=== PATIENT | female | born 1935 | race Caucasian/White ===

== ENCOUNTER → 2020-02-12 15:19 | Outpatient (BNVA) | payer MEDICARE, SELFPAY | PROVIDERS: PCP Family Medicine; Referring Provider Family Medicine; Visit Provider Surgery | DX: D05.01 Lobular carcinoma in situ of right breast (principal) | CPT/HCPCS: 99212 ==

== ENCOUNTER 2020-05-04 09:22 | Outpatient (REF) | payer MEDICARE, SELFPAY ==
[2020-05-04 11:03] LABS: Alanine Aminotransferase 17 U/L (0-31); Anion Gap 11 (12-20); Blood Urea Nitrogen 27 mg/dL (9-16); Carbon Dioxide 30 mmol/L (22-29); Chloride 105 mmol/L (96-108); Estimated Glomerular Filt Rate > 60; Sodium 142 mmol/L (135-145)
== END 2020-05-04 09:23 | disposition home or self-care (01) ==
LOC: HO.LAB 09:22
PROVIDERS: PCP Family Medicine; Visit Provider Family Medicine
DX: I10 Essential (primary) hypertension (principal); E78.00 Pure hypercholesterolemia, unspecified; E03.9 Hypothyroidism, unspecified; Z79.899 Other long term (current) drug therapy
CPT/HCPCS: 36415; 80051; 82550; 82565; 84439; 84460; 84520

== ENCOUNTER → 2020-08-20 10:48 | Outpatient (BNVA) | payer MEDICARE, SELFPAY | PROVIDERS: PCP Family Medicine; Visit Provider Surgery | DX: D05.01 Lobular carcinoma in situ of right breast (principal) | CPT/HCPCS: 99212 ==

== ENCOUNTER 2020-12-25 10:01 | Outpatient (REF) | payer MEDICARE, SELFPAY ==
--- NOTE | ~2020-12-25 | MM_ITS ---
EXAMINATION: MM SCREENING DIGITAL BREAST TOMOSYNTHESIS, BILATERAL CLINICAL INFORMATION: Screening. Asymptomatic. The lifetime risk of breast cancer based on the Tyrer-Cuzick Model is 4%. COMPARISON: Mammography: 10/31/2019, 10/23/2019, 10/17/2018 TECHNIQUE: Digital breast tomosynthesis is performed in both the craniocaudal and mediolateral oblique views along with computer-aided detection (CAD). Synthesized 2D images are generated from the tomosynthesis. FINDINGS: The breasts are heterogeneously dense, which may obscure small masses (ACR BI-RADS breast composition Category c). There are no significant masses, abnormal calcifications, or other abnormalities. Parenchymal pattern is similar to prior exams. No developing density. There are scattered benign coarse and vascular calcifications. Biopsy clip marker again seen anterior upper outer left breast. MM/MM tomosynthesis screening BI IMPRESSION: No mammographic evidence of malignancy. ASSESSMENT: BI-RADS 2: Benign RECOMMENDATION: Routine annual mammography screening. This patient's information was entered into a reminder system with a target due date for their next mammogram.
== END 2020-12-25 10:02 | disposition home or self-care (01) ==
LOC: HO.MAMMO 10:01
PROVIDERS: PCP Family Medicine; Visit Provider Surgery
DX: Z12.31 Encounter for screening mammogram for malignant neoplasm of breast (principal)
CPT/HCPCS: 77063; 77067

== ENCOUNTER 2021-01-27 10:57 | Outpatient (REF) | payer MEDICARE, SELFPAY ==
[2021-01-27 12:13] LABS: Anion Gap 11 (12-20); Blood Urea Nitrogen 31 mg/dL (9-16); Carbon Dioxide 29 mmol/L (22-29); Chloride 105 mmol/L (96-108); Estimated Glomerular Filt Rate 53; Potassium 3.8 mmol/L (3.3-5.1); Sodium 141 mmol/L (135-145)
== END 2021-01-27 10:58 | disposition home or self-care (01) ==
LOC: HO.LAB 10:57
PROVIDERS: PCP Family Medicine; Visit Provider Family Medicine
DX: I10 Essential (primary) hypertension (principal)
CPT/HCPCS: 36415; 80051; 82565; 84520

== ENCOUNTER → 2021-02-05 11:40 | Outpatient (BNVA) | payer MEDICARE, SELFPAY | PROVIDERS: PCP Family Medicine; Visit Provider Surgery | DX: D05.01 Lobular carcinoma in situ of right breast (principal) | CPT/HCPCS: 99212 ==

== ENCOUNTER 2021-08-04 10:24 | Outpatient (REF) | payer MEDICARE, SELFPAY ==
[2021-08-04 12:11] LABS: Anion Gap 11 (12-20); Blood Urea Nitrogen 29 mg/dL (9-16); Carbon Dioxide 28 mmol/L (22-29); Chloride 106 mmol/L (96-108); Estimated Glomerular Filt Rate 53; Sodium 141 mmol/L (135-145)
== END 2021-08-04 10:25 | disposition home or self-care (01) ==
LOC: HO.LAB 10:24
PROVIDERS: PCP Family Medicine; Visit Provider Family Medicine
DX: I10 Essential (primary) hypertension (principal)
CPT/HCPCS: 36415; 80051; 82565; 84520

== ENCOUNTER → 2021-08-13 10:40 | Outpatient (BNVA) | payer MEDICARE, SELFPAY | PROVIDERS: PCP Family Medicine; Visit Provider Surgery | DX: D05.01 Lobular carcinoma in situ of right breast (principal) | CPT/HCPCS: 99212 ==

== ENCOUNTER 2021-10-18 13:41 | Outpatient (REF) | payer MEDICARE, SELFPAY ==
--- NOTE | ~2021-10-18 | XR_ITS ---
EXAMINATION: XR LUMBOSACRAL SPINE CLINICAL INFORMATION: Sciatica COMPARISON: Radiographs lumbar spine 04/15/2015 TECHNIQUE: Lumbar spine is imaged in 3 views. FINDINGS: There is normal lumbar segmentation with 5 nonrib-bearing lumbar vertebrae with right dextrocurvature and mild accentuation lumbar lordosis again seen. There is no interval lumbar vertebral compression or destructive process. There is variable multilevel degenerative disc changes lower thoracic and lumbar spine with variable mild disc narrowing and vertebral spurring. There is no erosive change. Facet degeneration is seen greatest L4-S1. No spondylolisthesis or retrolisthesis. Degenerative changes are increased since prior imaging 2016. The SI joints and visualized sacrum are unremarkable. XR/XR lumbar spine 2-3V IMPRESSION: -Multilevel degenerative disc and degenerative facet changes increased since prior imaging 2016. -Dextrocurvature and accentuated lumbar lordosis again noted. -No vertebral compression, spondylolisthesis, or destructive process.
--- NOTE | ~2021-10-18 | XR_ITS ---
EXAMINATION: XR CHEST CLINICAL INFORMATION: Hoarseness COMPARISON: Chest radiographs 10/24/2013, 04/30/2013 TECHNIQUE: 2 views of the chest were obtained. FINDINGS: There is mild hyperinflation similar to prior studies. The cardiopericardial silhouette is borderline enlarged and stable. The vascularity is normal. There is no airspace consolidation or effusion. The hilar and mediastinal contours are normal. No acute bony abnormality. XR/XR chest 2V IMPRESSION: Lungs clear. No acute intrathoracic disease.
--- NOTE | ~2021-10-18 | XR_ITS ---
EXAMINATION: XR HIP, RIGHT CLINICAL INFORMATION: Pain right hip COMPARISON: None TECHNIQUE: Two views of the right hip. FINDINGS: No fracture, dislocation, destructive process. There is mild narrowing superior medial hip joints. No subchondral sclerosis or erosive change or chondrocalcinosis. Visualized pelvis unremarkable. Bowel gas unremarkable. 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 XR/XR hip RT min 2V IMPRESSION: Borderline narrowing superior medial right hip. No erosion or chondrocalcinosis.
== END 2021-10-18 13:42 | disposition home or self-care (01) ==
LOC: HO.XRAY 13:41
PROVIDERS: PCP Family Medicine; Visit Provider Family Medicine
DX: M25.551 Pain in right hip (principal); M54.31 Sciatica, right side
CPT/HCPCS: 71046; 72100; 73502

== ENCOUNTER 2021-12-31 11:43 | Outpatient (REF) | payer MEDICARE, SELFPAY ==
--- NOTE | ~2021-12-31 | MM_ITS ---
EXAMINATION: MM SCREENING DIGITAL BREAST TOMOSYNTHESIS, BILATERAL CLINICAL INFORMATION: Screening. Asymptomatic. History excisional right biopsy 2014 (sclerotic fibroadenoma, intraductal papilloma, multifocal LCIS). COMPARISON: Mammography: 12/25/2020, 10/31/2019, 10/23/2019, 10/17/2018 TECHNIQUE: Digital breast tomosynthesis is performed in both the craniocaudal and mediolateral oblique views along with computer-aided detection (CAD). Synthesized 2D images are generated from the tomosynthesis. FINDINGS: The breasts are heterogeneously dense, which may obscure small masses (ACR BI-RADS breast composition Category c). Parenchymal pattern is similar to prior studies. There is no significant mass, developing density, or architectural abnormality. Scattered benign round and coarse calcifications are present. No abnormal calcifications. Biopsy clip marker again noted anterior upper outer left breast. The axilla and skin contours are unremarkable. There are no significant changes. MM/MM tomosynthesis screening BI IMPRESSION: No mammographic evidence of malignancy. ASSESSMENT: BI-RADS 2: Benign RECOMMENDATION: Routine annual mammography screening. This patient's information was entered into a reminder system with a target due date for their next mammogram.
== END 2021-12-31 11:44 | disposition home or self-care (01) ==
LOC: HO.MAMMO 11:43
PROVIDERS: PCP Family Medicine; Visit Provider Family Medicine
DX: Z12.31 Encounter for screening mammogram for malignant neoplasm of breast (principal)
CPT/HCPCS: 77063; 77067

== ENCOUNTER 2022-01-20 12:28 | Outpatient (REF) | payer MEDICARE, SELFPAY ==
[2022-01-20 14:01] LABS: Alanine Aminotransferase 22 U/L (0-31); Anion Gap 12 (12-20); Aspartate Amino Transferase 49 U/L (5-31); Blood Urea Nitrogen 22 mg/dL (9-16); Carbon Dioxide 28 mmol/L (22-29); Chloride 105 mmol/L (96-108); Estimated Glomerular Filt Rate 48; Potassium 4.3 mmol/L (3.3-5.1); Sodium 141 mmol/L (135-145)
[2022-01-20 15:01] LABS: Free T4 (Free Thyroxine) 1.47 ng/dL (0.71-1.85); Thyroid Stimulating Hormone 1.47 uIU/mL (0.32-4.0)
== END 2022-01-20 12:29 | disposition home or self-care (01) ==
LOC: HO.LAB 12:28
PROVIDERS: PCP Family Medicine; Visit Provider Family Medicine
DX: I10 Essential (primary) hypertension (principal); E03.9 Hypothyroidism, unspecified; E78.00 Pure hypercholesterolemia, unspecified; Z79.899 Other long term (current) drug therapy
CPT/HCPCS: 36415; 80051; 82550; 82565; 84439; 84443; 84450; 84460; 84520

== ENCOUNTER 2022-07-15 12:26 | Outpatient (REF) | payer MEDICARE, SELFPAY ==
[2022-07-15 12:42] LABS: MANUAL DIFF FLAG NO
[2022-07-15 13:18] LABS: Basophils Absolute Auto 0.1 X10*3/uL (0.0-0.2); Basophils Percent Auto 1.2 % (0-2); Eosinophils Absolute Auto 0.2 X10*3/uL (0.0-0.4); Eosinophils Percent Auto 2.7 % (0-4); Hematocrit 34.8 % (37.0-47.0); Hemoglobin 11.3 g/dl (12.0-16.0); Imm Gran Abs Auto 0.02 X10*3/uL (0.00-0.03); Imm Gran Pct Auto 0.3 % (0.0-0.4); Lymphocytes Absolute Auto 1.8 X10*3/uL (1.2-4.9); Lymphocytes Percent Auto 29.1 % (20-40); Mean Corpuscular HGB Conc 32.5 g/dl (31.0-35.0); Mean Corpuscular Hemoglobin 29.2 pg (27.0-33.0); Mean Corpuscular Volume 89.9 fL (80.0-98.0); Mean Platelet Volume 10.8 fL (9.4-12.3); Monocytes Absolute Auto 0.8 X10*3/uL (0.1-1.2); Monocytes Percent Auto 13.5 % (2-11); Neutrophils Absolute Auto 3.2 x10*3/uL (2.0-8.3); Neutrophils Percent Auto 53.2 % (45-73); Platelet Count 263 X10*3/uL (160-400); Red Blood Count 3.87 X10*6/uL (4.20-5.50); Red Cell Distribution Width 13.7 % (11.0-16.0)
[2022-07-15 14:19] LABS: Alanine Aminotransferase 23 U/L (0-31); Albumin Level 3.7 g/dL (3.5-5.0); Alkaline Phosphatase 44 U/L (39-117); Anion Gap 13 (12-20); Aspartate Amino Transferase 53 U/L (5-31); Blood Urea Nitrogen 24 mg/dL (9-16); Calcium 9.4 mg/dL (8.4-10.2); Carbon Dioxide 25 mmol/L (22-29); Chloride 106 mmol/L (96-108); Estimated Glomerular Filt Rate 57; Free T4 (Free Thyroxine) 1.49 ng/dL (0.71-1.85); Glucose Random 87 mg/dL (60-115); Potassium 4.2 mmol/L (3.3-5.1); Sodium 140 mmol/L (135-145)
== END 2022-07-15 12:27 | disposition home or self-care (01) ==
LOC: HO.LAB 12:26
PROVIDERS: PCP Family Medicine; Visit Provider Family Medicine
DX: I10 Essential (primary) hypertension (principal); E03.9 Hypothyroidism, unspecified; R53.83 Other fatigue
CPT/HCPCS: 36415; 80053; 84439; 85025

== ENCOUNTER 2022-09-15 10:15 | Outpatient (AMB) | payer MEDICARE, SELFPAY ==
--- NOTE | 2022-09-15 10:18 | A.OFFVIS_ITS ---
Intake Vital Signs 09/15/22 10:28 Height 5 ft 3 in Weight 112 lb BMI 19.8 BP 149/67 H Blood Pressure Location Lt brachial Position Sitting Pulse 59 Intake Visit Reasons: Breast exam, 1 year follow up Intake Note: Patient is seen in office for yearly breast exam. Patient c/o: denies any concerns regarding the breast, mammogram due 12/2022 Physicist Nuclear Required: No Accompanied by: Self / Same As Patient Allergies tramadol Allergy (Unknown, Verified 09/15/22 10:27) oral swelling Medication List - Last Reconciled 09/15/22 by Leighton Abdul MD amlodipine 2.5 mg PO DAILY aspirin (Adult Low Dose Aspirin) 81 mg PO DAILY atenolol 50 mg PO BID fenofibrate nanocrystallized 145 mg PO DAILY hydrochlorothiazide 12.5 mg PO QAM levothyroxine 75 mcg PO DAILY losartan 100 mg PO DAILY mobujlpb-cyg-pyct-FA-lutein 8 mg iron-400 mcg-300 mcg (Centrum Silver Women) 1 tab PO DAILY HPI HPI Comments History of Present Illness Details 86-year-old female patient with history of LCIS right breast returning for follow-up breast examination. Patient underwent screening mammography in September 2013 which was interpreted as BI-RADS 2 annual screening recommended however a palpable mass was noted 1 month later after which a diagnostic mammogram was performed on 10/11/2013. This revealed a similar appearance therefore a diagnostic ultrasound was performed in the 6 o'clock position at the site of the palpable abnormality. This revealed a suspicious density and ultrasound-guided core biopsy was recommended. 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 Wide excision was recommended to assure complete removal. She underwent a right breast lumpectomy with needle localization by Dr. Trujillo on 11/13/2013. Pathology revealed a papilloma, sclerosing fibroadenoma, with associated LCIS. Follow-up mammogram on 10/23/2019 revealed a retroareolar calcification however repeat images obtained on 10/31/2019 revealed no evidence of calcification therefore routine annual screening was recommended. Her most recent mammogram of 12/31/2021 revealed no mammographic evidence of malignancy (BI-RADS 2). Patient feels well and denies any new breast symptoms, breast pain, nipple discharge, or other palpable masses. COUNT INCLUDES [facility] Medical History Barretts esophagus Coronary artery disease Hyperlipidemia Lobular carcinoma in situ (LCIS) of right breast Myocardial infarction Surgical History History of appendectomy History of arthroscopy of right shoulder (02/11/16) History of colonoscopy History of dilatation and curettage History of drainage of abscess (06/05/13) History of ear surgery History of endoscopy History of hysterectomy History of laparoscopic cholecystectomy (06/05/17) History of lumpectomy of right breast History of right breast biopsy (11/13/13) History of thyroidectomy Family History Father Pancreatic cancer Brother Pancreatic cancer Lung cancer Colon cancer Sister Stomach cancer Sister Lung cancer Social History Alcohol intake: current Patient Tobacco Use Status: Never used Tobacco Review of Systems Const All systems reviewed & are unremarkable except as noted in HPI and below Resp Denies cough, Denies hemoptysis, Denies stridor and Denies wheezing Denies nipple discharge Skin/Breast Denies breast swelling, Denies breast skin changes, Denies breast pain, Denies breast mass and Denies nipple discharge Jose C/Lymph Denies lymphadenopathy Aller/Immun Denies wheezing Physical Exam Const General: cooperative, comfortable, no acute distress, well developed, alert and awake Chest Other: Right breast: Well-healed incision in the 6 o'clock position oriented transversely with no underlying mass. No skin changes, no nipple retraction, no nipple discharge, no new palpable masses, and no enlarged axillary lymph nodes. Left breast: No skin changes, no nipple discharge, no nipple retraction, no palpable mass, no enlarged lymph nodes. Resp Effort & Inspection: normal respiratory effort Cardio Jugular venous distension: no JVD Skin General skin exam: no rashes or lesions noted Extrem General: Yes no clubbing, cyanosis or edema Assessment & Plan Assessment & Plan (1) Lobular carcinoma in situ (LCIS) of right breast: Comment: She is doing well with regard to her elevated risk of breast cancer. Code(s): D05.01 - Lobular carcinoma in situ of right breast Plan: 86-year-old female patient returning for follow-up breast examination after being diagnosed with lobular carcinoma in Situ of the right breast. She continues to do well and her most recent mammogram of 12/31/2021 revealed no evidence of suspicious findings in either breast (BI-RADS 2). On examination sh neema is found to have a well-healed incision in the right breast in the 6 o'clock position. No new palpable mass, skin change, or enlarged lymph nodes are appreciated. There is no evidence of recurrence disease. She should continue self examination, yearly mammography. Asked her to return in 1 year for follow- up breast examination. Coding Level of Care Code Est Pt Level 3 (96301) Diagnoses Lobular carcinoma in situ (LCIS) of right breast D05.01
[2022-09-15 10:28] VITALS: BP 149/67; PULSE 59; BMI 19.8
== END 2022-09-15 10:41 | disposition home or self-care (01) ==
PROVIDERS: PCP Family Medicine; Visit Provider Surgery
DX: Z85.3 Personal history of malignant neoplasm of breast (principal)
CPT/HCPCS: 99213

== ENCOUNTER → 2022-09-15 10:15 | Outpatient (BNVA) | payer MEDICARE, SELFPAY | PROVIDERS: PCP Family Medicine; Visit Provider Surgery | DX: D05.01 Lobular carcinoma in situ of right breast (principal) | CPT/HCPCS: 99212 ==

== ENCOUNTER 2022-10-27 14:57 | Outpatient (REF) | payer MEDICARE, SELFPAY ==
--- NOTE | ~2022-10-27 | US_ITS ---
EXAMINATION: Noninvasive assessment of the bilateral lower extremities with ARTERIAL DUPLEX CLINICAL INFORMATION: Peripheral vascular disease with lower extremity claudication TECHNIQUE: Duplex Doppler techniques with waveform analysis and measurement of velocities in the bilateral common femoral, profunda femoris, superficial femoral, popliteal and tibial arteries were performed. COMPARISON: None FINDINGS: DIRECT DUPLEX DOPPLER FINDINGS: RIGHT LEG: Common femoral artery: 99 cm/s, phasicity: Biphasic. Mild calcified plaque Profunda femoris artery: 95 cm/s, phasicity: Biphasic Superficial femoral artery (proximal): 111 cm/s, phasicity: Biphasic Superficial femoral artery (mid): 68 cm/s, phasicity: Biphasic. Arterial calcinosis Superficial femoral artery (distal): 73 cm/s, phasicity: Biphasic Popliteal artery: 81 cm/s, phasicity: Biphasic Posterior tibial artery: 40 cm/s, phasicity: Biphasic. Arterial calcinosis Peroneal artery: 85 cm/s, phasicity: Biphasic Anterior tibial artery: 76 cm/s, phasicity: Biphasic LEFT LEG: Common femoral artery: 105 cm/s, phasicity: Biphasic. Mild calcified plaque Profunda femoris artery: 72 cm/s, phasicity: Biphasic Superficial femoral artery (proximal): 88 cm/s, phasicity: Biphasic Superficial femoral artery (mid): 80 cm/s, phasicity: Biphasic. Arterial calcinosis Superficial femoral artery (distal): 80 cm/s, phasicity: Biphasic. Arterial calcinosis Popliteal artery: 57 cm/s, phasicity: Biphasic Posterior tibial artery: 65 cm/s, phasicity: Biphasic Peroneal artery: 59 cm/s, phasicity: Biphasic Anterior tibial artery: 73 cm/s, phasicity: Biphasic US/US arterial duplex LE BI IMPRESSION: Right leg: Patent arterial flow without significant stenosis or occlusion. Scattered areas of calcified plaque and arterial calcinosis Left leg: Patent arterial flow without significant stenosis or occlusion. Scattered areas of calcified plaque and arterial calcinosis
== END 2022-10-27 14:58 | disposition home or self-care (01) ==
LOC: HO.US 14:57
PROVIDERS: PCP Family Medicine; Visit Provider Family Medicine
DX: I70.213 Atherosclerosis of native arteries of extremities with intermittent claudication, bilateral legs (principal)
CPT/HCPCS: 93925

== ENCOUNTER 2022-11-02 15:00 | Outpatient (REF) | payer MEDICARE, SELFPAY ==
--- NOTE | ~2022-11-02 | XR_ITS ---
EXAMINATION: XR LUMBOSACRAL SPINE CLINICAL INFORMATION: Back pain. COMPARISON: None available. TECHNIQUE: AP and lateral views of the lumbar spine and lateral view of the lumbosacral junction. FINDINGS: There is bony demineralization. There is a mild thoracolumbar rotatory levoscoliosis. The lower thoracic and lumbar disc spaces are well-maintained. There is multi-level moderate to marked lower thoracic and mild lumbar spondylosis. The posterior elements are intact. There is facet arthropathy, most pronounced at L4-L5 and L5-S1. There are right upper quadrant surgical clips. There are pelvic vascular calcifications. XR/XR lumbar spine 2-3V IMPRESSION: 1. There is multi-level thoracolumbar spondylosis. 2. The lower thoracic and lumbar disc spaces are well-maintained. 3. There is facet arthropathy, most pronounced at L4-L5 and L5-S1. 4. There is a mild thoracolumbar rotatory levoscoliosis.
== END 2022-11-02 15:01 | disposition home or self-care (01) ==
LOC: HO.XRAY 15:00
PROVIDERS: PCP Family Medicine; Visit Provider Family Medicine
DX: M54.50 Low back pain, unspecified (principal)
CPT/HCPCS: 72100

== ENCOUNTER 2022-11-09 11:49 | Outpatient (REF) | payer MEDICARE, SELFPAY ==
[2022-11-09 12:31] LABS: MANUAL DIFF FLAG NO
[2022-11-09 12:44] LABS: Basophils Absolute Auto 0.1 X10*3/uL (0.0-0.2); Basophils Percent Auto 1.4 % (0-2); Eosinophils Absolute Auto 0.1 X10*3/uL (0.0-0.4); Eosinophils Percent Auto 2.2 % (0-4); Hematocrit 35.2 % (37.0-47.0); Hemoglobin 11.6 g/dl (12.0-16.0); Imm Gran Abs Auto 0.01 X10*3/uL (0.00-0.03); Imm Gran Pct Auto 0.2 % (0.0-0.4); Lymphocytes Absolute Auto 1.8 X10*3/uL (1.2-4.9); Lymphocytes Percent Auto 30.3 % (20-40); Mean Corpuscular Hemoglobin 29.3 pg (27.0-33.0); Mean Corpuscular Volume 88.9 fL (80.0-98.0); Mean Platelet Volume 10.2 fL (9.4-12.3); Monocytes Absolute Auto 0.8 X10*3/uL (0.1-1.2); Monocytes Percent Auto 14.2 % (2-11); Neutrophils Percent Auto 51.7 % (45-73); Platelet Count 273 X10*3/uL (160-400); Red Blood Count 3.96 X10*6/uL (4.20-5.50); Red Cell Distribution Width 14.2 % (11.0-16.0); White Blood Count 5.9 X10*3/uL (4.8-10.8)
[2022-11-09 14:00] LABS: Iron 129 mcg/dL (30-160); Percent Iron Saturation 35 % (15-50); Total Iron Binding Capacity 369 mcg/dL (228-428); Unsaturated Iron Binding 240 ug/dL
[2022-11-09 14:09] LABS: Ferritin 358 ng/mL (10-250)
[2022-11-09 14:20] LABS: Folate 17.6 ng/mL (> or = 4.0); Vitamin B12 917 pg/mL (200-900)
== END 2022-11-09 11:50 | disposition home or self-care (01) ==
LOC: HO.LAB 11:49
PROVIDERS: PCP Family Medicine; Visit Provider Family Medicine
DX: D64.9 Anemia, unspecified (principal)
CPT/HCPCS: 36415; 82607; 82728; 82746; 83540; 85025

== ENCOUNTER 2022-11-10 11:29 | Outpatient (REF) | payer MEDICARE, SELFPAY ==
--- NOTE | ~2022-11-10 | XR_ITS ---
EXAMINATION: XR THORACIC SPINE CLINICAL INFORMATION: Back pain. COMPARISON: Lateral chest image dated 10/18/2021. TECHNIQUE: 2 views. FINDINGS: Moderate degenerative changes. No acute finding here. No listhesis or compression injury. There is mild kyphosis. Minimal scoliosis is noted. XR/XR thoracic spine 3V IMPRESSION: Moderate degenerative changes. No listhesis or acute compression injury.
[2022-11-10 14:43] LABS: Erythrocyte Sedimentation Rate 8 MM/HR (0-20)
[2022-11-10 14:53] LABS: Alanine Aminotransferase 21 U/L (0-31); Albumin Level 3.9 g/dL (3.5-5.0); Alkaline Phosphatase 42 U/L (39-117); Anion Gap 10 (12-20); Aspartate Amino Transferase 47 U/L (5-31); Blood Urea Nitrogen 28 mg/dL (9-16); Calcium 9.6 mg/dL (8.4-10.2); Carbon Dioxide 29 mmol/L (22-29); Chloride 106 mmol/L (96-108); Estimated Glomerular Filt Rate 53; Free T4 (Free Thyroxine) 1.48 ng/dL (0.71-1.85); Glucose Random 68 mg/dL (60-115); Sodium 141 mmol/L (135-145); Thyroid Stimulating Hormone 0.54 uIU/mL (0.32-4.0); Total Protein 6.4 g/dL (6.5-8.0)
== END 2022-11-10 11:30 | disposition home or self-care (01) ==
LOC: HO.LAB 11:29
PROVIDERS: PCP Family Medicine; Visit Provider Family Medicine
DX: R53.1 Weakness (principal); M54.9 Dorsalgia, unspecified
CPT/HCPCS: 36415; 72072; 80053; 84439; 84443; 85652

== ENCOUNTER 2023-01-04 11:19 | Outpatient (REF) | payer MEDICARE, SELFPAY ==
--- NOTE | ~2023-01-04 | MM_ITS ---
EXAMINATION: MM SCREENING DIGITAL BREAST TOMOSYNTHESIS, BILATERAL CLINICAL INFORMATION: Screening. Asymptomatic. COMPARISON: Mammography: This study is compared with prior exams dating back to 2018. TECHNIQUE: Digital breast tomosynthesis is performed in both the craniocaudal and mediolateral oblique views along with computer-aided detection (CAD). Synthesized 2D images are generated from the tomosynthesis. FINDINGS: The breasts are heterogeneously dense, which may obscure small masses (ACR BI-RADS breast composition Category c). There are no significant masses, abnormal calcifications, or other abnormalities. There are a few, bilateral benign calcifications. There is tissue marker in the superior aspect of the left breast from prior benign percutaneous biopsy. MM/MM tomosynthesis screening BI IMPRESSION: No mammographic evidence of malignancy. ASSESSMENT: BI-RADS BI-RADS 2 - Benign Findings RECOMMENDATION: Routine annual mammography screening. 1 year F/U This examination should not preclude the clinical evaluation of a suspicious palpable abnormality. This patient's information was entered into a reminder system with a target due date for their next mammogram.
== END 2023-01-04 11:20 | disposition home or self-care (01) ==
LOC: HO.MAMMO 11:19
PROVIDERS: PCP Family Medicine; Visit Provider Family Medicine
DX: Z12.31 Encounter for screening mammogram for malignant neoplasm of breast (principal)
CPT/HCPCS: 77063; 77067

== ENCOUNTER → 2023-01-04 12:00 | Outpatient (BNV) | payer MEDICARE, SELFPAY | PROVIDERS: PCP Family Medicine; Visit Provider Radiology Diagnostic Radiology | DX: Z12.31 Encounter for screening mammogram for malignant neoplasm of breast (principal) | CPT/HCPCS: 77063; 77067 ==

== ENCOUNTER 2023-05-10 10:07 | Outpatient (REF) | payer MEDICARE, SELFPAY ==
[2023-05-10 11:28] LABS: Anion Gap 8 (12-20); Blood Urea Nitrogen 25 mg/dL (9-16); Carbon Dioxide 30 mmol/L (22-29); Chloride 106 mmol/L (96-108); Estimated Glomerular Filt Rate 53; Potassium 3.5 mmol/L (3.3-5.1); Sodium 140 mmol/L (135-145)
[2023-05-10 11:58] LABS: Free T4 (Free Thyroxine) 1.38 ng/dL (0.71-1.85); Thyroid Stimulating Hormone 0.83 uIU/mL (0.32-4.0)
== END 2023-05-10 10:08 | disposition home or self-care (01) ==
LOC: HO.LAB 10:07
PROVIDERS: PCP Family Medicine; Visit Provider Family Medicine
DX: I10 Essential (primary) hypertension (principal); E03.9 Hypothyroidism, unspecified
CPT/HCPCS: 36415; 80051; 82565; 84439; 84443; 84520

== ENCOUNTER 2023-10-06 08:48 | Outpatient (AMB) | payer MEDICARE, SELFPAY ==
--- NOTE | 2023-10-06 08:59 | MHC.OFFVIS ---
Vital Signs 10/06/23 09:22 Height 5 ft 3 in Weight 110 lb BMI 19.5 BP 147/69 H Blood Pressure Location Lt brachial Position Sitting Pulse 60 Intake Visit Reasons: yearly breast exam Intake Note: Patient is seen in office for yearly breast exam. Patient c/o: denies any concerns regarding the breast mm sched:01/08/24 [place] Required: No Accompanied by: Self / Same As Patient Allergies tramadol Allergy (Unknown, Verified 10/06/23 09:25) oral swelling HPI Comments Details: 88-year-old female patient with history of LCIS right breast returning for follow-up breast examination. Patient underwent screening mammography in September 2013 which was interpreted as BI-RADS 2 annual screening recommended however a palpable mass was noted 1 month later after which a diagnostic mammogram was performed on 10/11/2013. This revealed a similar appearance therefore a diagnostic ultrasound was performed in the 6 o'clock position at the site of the palpable abnormality. This revealed a suspicious density and ultrasound-guided core biopsy was recommended. 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 Wide excision was recommended to assure complete removal. She underwent a right breast lumpectomy with needle localization by Dr. Trujillo on 11/13/2013. Pathology revealed a papilloma, sclerosing fibroadenoma, with associated LCIS. Her most recent mammogram of 01/04/2023 revealed no mammographic evidence of malignancy (BI-RADS 2). She is scheduled for a annual mammogram on 01/08/2024. Patient feels well and denies any new breast symptoms, breast pain, nipple discharge, or other palpable masses. [facility], LAT[facility] Medical History Lobular carcinoma in situ (LCIS) of right breast Hyperlipidemia Myocardial infarction Coronary artery disease Barretts esophagus Surgical History History of laparoscopic cholecystectomy (06/05/17) History of drainage of abscess (06/05/13) History of lumpectomy of right breast History of arthroscopy of right shoulder (02/11/16) History of ear surgery History of thyroidectomy History of appendectomy History of dilatation and curettage History of hysterectomy History of colonoscopy History of endoscopy History of right breast biopsy (11/13/13) Family History Father Pancreatic cancer Brother Pancreatic cancer Lung cancer Colon cancer Sister Stomach cancer Sister Lung cancer Social History Alcohol intake: current Patient Tobacco Use Status: Never used Tobacco Review of Systems Const All systems reviewed & are unremarkable except as noted in HPI and below ENT Denies Normal hearing present Resp Denies cough, Denies hemoptysis, Denies stridor and Denies wheezing Denies nipple discharge Skin/Breast Denies breast swelling, Denies breast skin changes, Denies breast pain, Denies breast mass and Denies nipple discharge Neuro Denies Normal hearing present Jose C/Lymph Denies lymphadenopathy Aller/Immun Denies wheezing Physical Exam Const General: cooperative, comfortable, no acute distress, well developed, alert and awake HEENT Other: [place] Chest Other: Right breast: Well-healed incision in the 6 o'clock position oriented transversely with no underlying mass. No skin changes, no nipple retraction, no nipple discharge, no new palpable masses, and no enlarged axillary lymph nodes. Left breast: No skin changes, no nipple discharge, no nipple retraction, no palpable mass, no enlarged lymph nodes. Resp Effort & Inspection: normal respiratory effort Cardio Jugular venous distension: no JVD Skin General skin exam: no rashes or lesions noted Neuro Other: Mobility Assessment: 1. 3 meter assessment time (seconds)7 2. Gait observations: slow tentative pace Cranial nerves: No Normal hearing present Extrem General: Yes no clubbing, cyanosis or edema Assessment & Plan Assessment & Plan (1) Lobular carcinoma in situ (LCIS) of right breast: Comment: She is doing well with regard to her elevated risk of breast cancer. Code(s): D05.01 - Lobular carcinoma in situ of right breast Category: Medical Plan: 88-year-old female patient returning for follow-up breast examination after being diagnosed with lobular carcinoma in Situ of the right breast. She continues to do well and her most recent mammogram of 01/04/2023 revealed no evidence of suspicious findings in either breast (BI-RADS 2). On examination she is found to have a well-healed incision in the right breast in the 6 o'clock position. No new palpable mass, skin change, or enlarged lymph nodes are appreciated. There is no evidence of recurrence disease. She should continue self examination, yearly mammography. Asked her to return in 1 year for follow-up breast examination. Coding Level of Care Code Est Pt Level 3 (97431) Diagnoses Lobular carcinoma in situ (LCIS) of right breast D05.01
[2023-10-06 09:22] VITALS: BP 147/69; PULSE 60; BMI 19.5
== END 2023-10-06 09:26 | disposition home or self-care (01) ==
PROVIDERS: PCP Family Medicine; Visit Provider Surgery
DX: D05.01 Lobular carcinoma in situ of right breast (principal)
CPT/HCPCS: 99213

== ENCOUNTER → 2023-10-06 08:48 | Outpatient (BNVA) | payer MEDICARE, SELFPAY | PROVIDERS: PCP Family Medicine; Visit Provider Surgery | DX: D05.01 Lobular carcinoma in situ of right breast (principal) | CPT/HCPCS: 99212 ==

== ENCOUNTER 2023-12-04 09:06 | Outpatient (REF) | payer MEDICARE, SELFPAY ==
[2023-12-04 09:41] LABS: MANUAL DIFF FLAG NO
[2023-12-04 10:10] LABS: Basophils Absolute Auto 0.1 X10*3/uL (0.0-0.2); Basophils Percent Auto 1.5 % (0-2); Eosinophils Absolute Auto 0.2 X10*3/uL (0.0-0.4); Eosinophils Percent Auto 3.6 % (0-4); Hematocrit 35.5 % (37.0-47.0); Hemoglobin 11.4 g/dl (12.0-16.0); Imm Gran Abs Auto 0.02 X10*3/uL (0.00-0.03); Imm Gran Pct Auto 0.3 % (0.0-0.4); Lymphocytes Absolute Auto 1.7 X10*3/uL (1.2-4.9); Lymphocytes Percent Auto 29.7 % (20-40); Mean Corpuscular HGB Conc 32.1 g/dl (31.0-35.0); Mean Corpuscular Hemoglobin 28.9 pg (27.0-33.0); Mean Corpuscular Volume 90.1 fL (80.0-98.0); Mean Platelet Volume 10.3 fL (9.4-12.3); Monocytes Absolute Auto 0.8 X10*3/uL (0.1-1.2); Monocytes Percent Auto 13.9 % (2-11); Platelet Count 251 X10*3/uL (160-400); Red Blood Count 3.94 X10*6/uL (4.20-5.50); Red Cell Distribution Width 14.1 % (11.0-16.0); White Blood Count 5.8 X10*3/uL (4.8-10.8)
[2023-12-04 11:07] LABS: Alanine Aminotransferase 22 U/L (0-31); Anion Gap 13 (12-20); Aspartate Amino Transferase 49 U/L (5-31); Blood Urea Nitrogen 26 mg/dL (9-16); Carbon Dioxide 26 mmol/L (22-29); Chloride 108 mmol/L (96-108); Cholesterol 127 mg/dL (<200); Estimated Glomerular Filt Rate 52; HDL Cholesterol 52 mg/dL (>40); LDL Cholesterol Calculated 65 mg/dL (<100); Potassium 3.7 mmol/L (3.3-5.1); Sodium 143 mmol/L (135-145); Triglycerides 52 mg/dL (<150)
[2023-12-04 11:10] LABS: Free T4 (Free Thyroxine) 1.18 ng/dL (0.71-1.85)
== END 2023-12-04 09:07 | disposition home or self-care (01) ==
LOC: HO.LAB 09:06
PROVIDERS: PCP Family Medicine; Visit Provider Student in an Organized Health Care Education/Training Program
DX: E78.00 Pure hypercholesterolemia, unspecified (principal); Z79.899 Other long term (current) drug therapy; I10 Essential (primary) hypertension; E03.9 Hypothyroidism, unspecified; D50.9 Iron deficiency anemia, unspecified
CPT/HCPCS: 36415; 80051; 80061; 82550; 82565; 84439; 84450; 84460; 84520; 85025

== ENCOUNTER 2024-01-08 11:41 | Outpatient (REF) | payer MEDICARE, SELFPAY ==
--- NOTE | ~2024-01-08 | MM_ITS ---
EXAMINATION: MM SCREENING DIGITAL BREAST TOMOSYNTHESIS, BILATERAL CLINICAL INFORMATION: Screening. Asymptomatic. COMPARISON: Mammography: Comparison is made with available priors TECHNIQUE: Digital breast mammography with tomosynthesis is performed in both the craniocaudal and mediolateral oblique views along with computer-aided detection (CAD). FINDINGS: The breasts are heterogeneously dense, which may obscure small masses (ACR BI-RADS breast composition Category c). There are no significant masses, abnormal calcifications, or other abnormalities. MM/MM tomosynthesis screening BI IMPRESSION: No mammographic evidence of malignancy. ASSESSMENT: BI-RADS BI-RADS 1 - Negative RECOMMENDATION: Routine annual mammography screening. 1 year F/U This examination should not preclude the clinical evaluation of a suspicious palpable abnormality. This patient's information was entered into a reminder system with a target due date for their next mammogram. Electronically signed by: Kelsey Barreto DO 01/16/2024 02:24 PM [facility]
== END 2024-01-08 11:42 | disposition home or self-care (01) ==
LOC: HO.MAMMO 11:41
PROVIDERS: PCP Family Medicine; Visit Provider Family Medicine
DX: Z12.31 Encounter for screening mammogram for malignant neoplasm of breast (principal)
CPT/HCPCS: 77063; 77067

== ENCOUNTER → 2024-01-08 12:15 | Outpatient (BNV) | payer MEDICARE, SELFPAY | PROVIDERS: PCP Family Medicine; Visit Provider Internal Medicine | DX: Z12.31 Encounter for screening mammogram for malignant neoplasm of breast (principal) | CPT/HCPCS: 77063; 77067 ==

== ENCOUNTER 2024-05-03 08:57 | Outpatient (REF) | payer MEDICARE, SELFPAY ==
[2024-05-03 09:19] LABS: MANUAL DIFF FLAG NO
[2024-05-03 10:21] LABS: Basophils Absolute Auto 0.1 X10*3/uL (0.0-0.2); Basophils Percent Auto 1.5 % (0-2); Eosinophils Absolute Auto 0.2 X10*3/uL (0.0-0.4); Hematocrit 36.5 % (37.0-47.0); Imm Gran Abs Auto 0.01 X10*3/uL (0.00-0.03); Imm Gran Pct Auto 0.2 % (0.0-0.4); Lymphocytes Absolute Auto 1.8 X10*3/uL (1.2-4.9); Lymphocytes Percent Auto 32.8 % (20-40); Mean Corpuscular HGB Conc 32.9 g/dl (31.0-35.0); Mean Corpuscular Hemoglobin 29.1 pg (27.0-33.0); Mean Corpuscular Volume 88.6 fL (80.0-98.0); Mean Platelet Volume 10.6 fL (9.4-12.3); Monocytes Absolute Auto 0.7 X10*3/uL (0.1-1.2); Monocytes Percent Auto 12.4 % (2-11); Neutrophils Absolute Auto 2.7 x10*3/uL (2.0-8.3); Neutrophils Percent Auto 50.1 % (45-73); Platelet Count 252 X10*3/uL (160-400); Red Blood Count 4.12 X10*6/uL (4.20-5.50); Red Cell Distribution Width 14.1 % (11.0-16.0); White Blood Count 5.4 X10*3/uL (4.8-10.8)
[2024-05-03 11:12] LABS: Anion Gap 12 (12-20); Blood Urea Nitrogen 22 mg/dL (9-16); Carbon Dioxide 28 mmol/L (22-29); Chloride 107 mmol/L (96-108); Estimated Glomerular Filt Rate > 60; Potassium 3.4 mmol/L (3.3-5.1); Sodium 144 mmol/L (135-145)
[2024-05-03 11:17] LABS: Free T4 (Free Thyroxine) 1.56 ng/dL (0.71-1.85)
== END 2024-05-03 08:58 | disposition home or self-care (01) ==
LOC: HO.LAB 08:57
PROVIDERS: PCP Family Medicine; Visit Provider Family Medicine
DX: E03.8 Other specified hypothyroidism (principal); I10 Essential (primary) hypertension; D50.9 Iron deficiency anemia, unspecified
CPT/HCPCS: 36415; 80051; 82565; 84439; 84520; 85025

== ENCOUNTER 2024-05-07 09:08 | Outpatient (REF) | payer MEDICARE, SELFPAY ==
[2024-05-07 10:20] LABS: Anion Gap 12 (12-20); Blood Urea Nitrogen 24 mg/dL (9-16); Calcium 9.4 mg/dL (8.4-10.2); Carbon Dioxide 28 mmol/L (22-29); Chloride 108 mmol/L (96-108); Estimated Glomerular Filt Rate 57; Glucose Random 91 mg/dL (60-115); Sodium 144 mmol/L (135-145)
== END 2024-05-07 09:09 | disposition home or self-care (01) ==
LOC: HO.LAB 09:08
PROVIDERS: PCP Family Medicine; Visit Provider Internal Medicine Cardiovascular Disease
DX: I10 Essential (primary) hypertension (principal)
CPT/HCPCS: 36415; 80048

== ENCOUNTER 2024-10-29 11:53 | Outpatient (AMB) | payer MEDICARE, SELFPAY ==
--- NOTE | 2024-10-29 11:55 | A.OFFPC_ITS ---
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: No Accompanied by: Self / Same As Patient Allergies tramadol Allergy (Unknown, Verified 10/29/24 12:06) oral swelling Medication List - Last Reconciled 10/29/24 by PHYLLIS Abbott amlodipine 7.5 mg PO DAILY aspirin (Adult Low Dose Aspirin) 81 mg PO DAILY atenolol 50 mg PO BID fenofibrate nanocrystallized 145 mg PO DAILY levothyroxine 75 mcg PO DAILY losartan 100 mg PO DAILY ylntoqvs-mnc-degr-FA-vit K-lut 8 mg iron-400 mcg-50 mcg (Centrum Silver Women) 1 tab PO DAILY omeprazole 10 mg PO QAM Tobacco use date assessed: 10/29/24 Fall risk assessment: No Falls in past year Last assessed Fall Risk: 10/29/24 Dental Screening Dental Screen Date: 10/29/24 Did you have a dental visit in the last 12 months?: Yes Did you have a dental problem in the last 6 months where you did not have access to dental care?: No Was dental information given to patient?: No HPI HPI Comments History of Present Illness Details 81-year-old female with history of hypot hyroidism, hypertension, GERD/Swartz's esophagus, history of LCIS, coronary artery disease presenting to the office today for management of chronic conditions and to establish care. Hypothyroidism- follows with [facility], but has not seen in 3 years. Due for TSH. On levothyroxine 75mcg HTN- On losartan 100mg, atenolol 50mg bid, hctz 12.5mg, amlodipine 5mg daily GERD/Swartz's- stable on prilosec Hx breast CA- follows annually for breast exams with Dr. Abdul. Does mammogr ams annually CAD- follows with Dr. Ortiz [facility] [place] cardiology . On aspirin and atenolol Concerns: Leg cramping- ongoing for months. Worse in the morning but also present during the day. One episode edema with high heat, resolved. No claudication. Taking magnesium Health Maintenance: Last colonoscopy 2011, p.r.n. basis Last mammogram 01/2024, annual follow-up ROS: General: No fevers, malaise, unintentional weight loss HEENT: No blurred vision, diplopia. No sore throat, nasal congestion, rhinorrhea, sinus pain, ear pain Cardiovascular: No chest pain, palpitations. see hpi Respiratory: No shortness of breath, wheezing, cough GI: No abdominal pain, nausea, vomiting, diarrhea, constipation, melena, hematochezia : No dysuria, hematuria, increased urinary frequency, decreased urinary output MSK: No myalgia, back pain Neuro: No headaches, weakness, paresthesias Skin: No rashes or lesions EXAM: Constitutional - Awake and Alert, No apparent distress Eyes - PERRL Cardiovascular - S1S2, RRR, No edema Respiratory - Normal lung expansion, Normal respiratory effort, No respiratory distress, CTA bilaterally Extremities - no calf tenderness bilaterally, no swelling. Telangectasias bilateral lower legs with ttp and several prominent variscocities medical lower leg Skin - Warm/Dry Neurological - Alert & oriented x3 Psychological - Appropriate affect [facility] Medical History (Updated 10/29/24 @ 12:39 by PHYLLIS Abbott) Hypertension Bilateral leg cramps Hypothyroidism Lobular carcinoma in situ (LCIS) of right breast Hyperlipidemia Myocardial infarction Coronary artery disease Barretts esophagus Surgical History (Updated 10/28/24 @ 16:13 by Viola Major) History of laparoscopic cholecystectomy (06/05/17) History of drainage of abscess (06/05/13) History of lumpectomy of right breast History of arthroscopy of right shoulder (02/11/16) History of ear surgery History of thyroidectomy History of appendectomy History of dilatation and curettage History of hysterectomy History of colonoscopy (~05/27/11) History of endoscopy History of right breast biopsy (11/13/13) Family History Father Pancreatic cancer Brother Pancreatic cancer Lung cancer Colon cancer Sister Stomach cancer Sister Lung cancer Social History Housing: House (With daughter) Alcohol intake: current Patient Tobacco Use Status: Never used Tobacco e-Cigarette/Vaping Use: Never Used service: No Current occupational status: retired Cognitive needs: No Hearing needs: Yes (right only) Vision needs: No Questionnaire PHQ-9 Over the last 2 weeks, how often have you been bothered by any of the following problems? 1. Little interest or pleasure in doing things: not at all 2. Feeling down, depressed, or hopeless: not at all 3. Trouble falling or staying asleep, or sleeping too much: not at all 4. Feeling tired or having little energy: several days 5. Poor appetite or overeating: not at all 6. Feeling bad about yourself - or that you are a failure or have let yourself or your family down: not at all 7. Trouble concentrating on things, such as reading the newspaper or watching television: not at all 8. Moving or speaking so slowly that other people could have noticed. Or the opposite - being so fidgety or restless that you have been moving around a lot more than usual: not at all 9. Thoughts that you would be better off or of hurting yourself in some way: not at all Total score: 1 Source: Developed by Drs. Jacinto Hernandez, Atiya Bedoya, Mukesh Ghotra and colleagues, with an educational dominic from [employer]. Thrive Questionnaire Date Thrive assessed: 10/29/24 I am a: Patient What is your living situation today?: I have a steady place to live Within the past 12 months, did the food you bought not last and you didn't have the money to get more?: Never true Within the past 12 months, did you worry whether your food would run out before you got money to buy more?: Never true Do you have trouble paying for medicines?: No Do you have trouble getting transportation to medical appointments?: No Do you have trouble paying your heating and electricity bill?: No Do you have trouble taking care of your child, family member or friend?: No Do you have trouble with day-to-day activities such as bathing, preparing meals, shopping, managing finances, etc.?: No Are you currently unemployed and looking for a job?: No Are you interested in more education?: No Please select the resources that you would like help with: None THRIVE Score: 0 LUIS EDUARDO-7 AMB Questionnaire LUIS EDUARDO-7 Date LUIS EDUARDO - 7 assessed: 10/29/24 Feeling nervous, anxious, or on edge: 0 = Not at all Not being able to stop or control worryin = Not at all Worrying too much about different things: 0 = Not at all Trouble relaxin = Not at all Being so restless that it is hard to sit still: 0 = Not at all Becoming easily annoyed or irritable: 0 = Not at all Feeling afraid as if something awful might happen: 0 = Not at all Total LUIS EDUARDO-7 score (0-4 normal; 5-9 mild; 10-14 moderate; 15-21 severe): 0 Source: Developed by Drs. Jacinto Hernandez, Atiya Bedoya, Mukesh Ghotra and colleagues, with an educational dominic from [employer]. Physical exam (Primary Care) Vital Signs: Last Vital Signs Temp 97.2 F 10/29/24 12:09 Pulse 81 10/29/24 12:09 Resp 14 10/29/24 12:09 BP 140/60 H 10/29/24 12:09 Pulse Ox 98 10/29/24 12:09 Oxygen Delivery Method Room Air 10/29/24 12:09 BMI result Body Mass Index 20.1 Tobacco/Smoking Status: Tobacco use Status Tobacco use date assessed 10/29/24 10/29/24 12:12 Patient Tobacco Use Status Never used Tobacco 10/29/24 11:56 e-Cigarette/Vaping Use Never Used 10/29/24 12:12 PHQ-9: PHQ-9 Score PHQ-9: Total score 1 10/29/24 12:18 Thrive Assessment: Date of Thrive Assessment Date Thrive assessed 10/29/24 10/29/24 12:12 Coding Level of Care Code New Pt Level 4 (60540) Complex EM visit Add On G2211 Diagnoses Coronary artery disease I25.10 Hyperlipidemia E78.5 Hypothyroidism E03.9 Lobular carcinoma in situ (LCIS) of right breast D05.01 Bilateral leg cramps R25.2 Telangiectasia I78.1 Hypertension I10 Assessment & Plan Assessment & Plan (1) Coronary artery disease: Code(s): I25.10 - Atherosclerotic heart disease of k[place] coronary artery without angina pectoris Category: Medical Plan: Stable. Continue following with Cardiology, notes to be obtained. Continue baby aspirin, atenolol. (2) Hyperlipidemia: Code(s): E78.5 - Hyperlipidemia, unspecified Category: Medical Plan: Lipid panel ordered. Continue fenofibrate. Diet low in saturated fats and highly processed foods (3) Hypothyroidism: Code(s): E03.9 - Hypothyroidism, unspecified Category: Medical Plan: TSH ordered. Continue levothyroxine 75 mcg daily (4) Lobular carcinoma in situ (LCIS) of right breast: Comment: She is doing well with regard to her elevated risk of breast cancer. Code(s): D05.01 - Lobular carcinoma in situ of right breast Category: Medical Plan: Reviewed last mammogram. Follow-up with General surgery next month as scheduled (5) Bilateral leg cramps: Code(s): R25.2 - Cramp and spasm Category: Medical Plan: Discontinue hydrochlorothiazide as this may be the cause of her leg cramping. Advised to drink plenty of water. It is also possible this is vascular in nature given telangiectasias and prominent varicosities. Referred to vascular surgery. Recommend compression stockings and leg elevation. Can continue magnesium. Will check electrolyte levels today (6) Telangiectasia: Code(s): I78.1 - Nevus, non-neoplastic Category: Medical Plan: As above (7) Hypertension: Code(s): I10 - Essential (primary) hypertension Category: Medical Plan: Controlled with blood pressure recheck of 126/62. Given leg cramping, discontinue hydrochlorothiazide. Increase amlodipine to 75 mg daily. Continue losartan 100 mg and atenolol 50 mg twice daily. Follow-up in the office in 2 weeks for blood pressure recheck Plan Follow-up in the office in 2 weeks for blood pressure check Orders: Orders Lipid Panel Today E03.9 - Hypothyroidism, unspecified, E78.5 - Hyperlipidemia, unspecified, I25.10 - Atherosclerotic heart disease of k[place] coronary artery without angina pectoris Liver Panel Today E03.9 - Hypothyroidism, unspecified, E78.5 - Hyperlipidemia, unspecified, I25.10 - Atherosclerotic heart disease of [place] coronary artery without angina pectoris Magnesium Today I78.1 - Nevus, non-neoplastic, R25.2 - Cramp and spasm Basic Metabolic Panel Today E03.9 - Hypothyroidism, unspecified, E78.5 - Hyperlipidemia, unspecified, I25.10 - Atherosclerotic heart disease of k[place] coronary artery without angina pectoris TSH reflex Free T4 Today E03.9 - Hypothyroidism, unspecified, E78.5 - Hyperlipidemia, unspecified, I25.10 - Atherosclerotic heart disease of k[place] coronary artery without angina pectoris Referrals Vascular Surgery Referral I78.1 - Nevus, non-neoplastic, R25.2 - Cramp and spasm Medications: Discontinued hydrochlorothiazide Discontinued Reason: Doctor's Order 12.5 mg PO QAM 90 caps 1RF Patient Instructions: STOP hydrochlorothiazide- this may be causing your leg cramping INCREASE amlodipine to 7.5 (1.5 tabs) daily. COntinue all other medications Follow up in 2 weeks. Labs can be completed today
[2024-10-29 12:09] VITALS: BP 140/60; PULSE 81; RESP 14; TEMP 36.2; O2SAT 98; BMI 20.1
--- OUTSIDE RECORDS SUMMARY | 2024-10-29 12:49 | XMS_ITS | Patient Health Record ---
Author Organization [facility] Address [address] [place] [id number] Care Team Providers Care Cyber Incident Analyst Name Role Phone Norris (RETIRED) Edvin GOLDMAN Primary Care Provider Unavailable Mumtaz Blackwood Jr Unavailable Reason For Referral No Information Medications Medication SIG (Take, Route, Frequency, Duration) Notes Start Date End Date Status hydroCHLOROthiazide 12.5 MG 1 capsule Or ally Once a day Active Colyte with Flavor Packs 240 GM As direc shonna Orally Over the specified time. for 1 day(s) Active Losartan Potassium 50 MG Orally Active Vitamin D 1000 UNIT 1 tablet Orally Once a day Active Centrum Silver - Orally Act jerardo Omeprazole 20 MG take 1 capsule by mouth once daily for 30 Active Omeprazole 20 MG 1 capsule Orally Onc e a day for 30 days 10/12/2016 Active Levothyroxine Sodium 100 MCG 1 tablet Or ally Once a day Active Aspirin 81 MG 1 tablet Orally Once a day Active Atenolol 50 MG 1 tablet Orally Once a day Active Immunizations Vaccine Route Administration Date Status Comme nts Flu vaccine no Preserv 3 and > Unknown 12/18/2013 Admin istered Influenza Unknown 12/05/2015 Administered Influenza Unknown 10/04/2016 Administered Problems Problem Type SNOMED Code ICD Code Onset Dates Problem Status W/U Status Risk Notes Problem 103738326 Colon cancer screening (Z12.11) Active confirmed Problem 343526695 Swartz's esophagus without dysplasia (K22.70) Active confirmed Problem 247843119 Generalized abdominal pain (R10.84) Active confirmed Problem 833980360 Family history of colon cancer (Z80.0) Active confirmed Plan Of Treatment Future Test Test Name Order Date UPPER GI ENDOSCOPY 05/18/2011 COLONOSCOPY 05/18/2011 UPPER GI ENDOSCOPY 09/03/2014 UPPER GI ENDOSCOPY 04/27/2017 COLONOSCOPY 04/27/2017 Insurance Providers Payer Name Payer Address Payer Phone Subscriber Number Group Number Insured Name Patient Relationship to Insured Coverage Start Date Coverage End Date MEDICARE OF [place] [address] [place] [id number] ROSSANA LARA Self - patient is the insured MED[employer] ATTN CLAIMS [address] [place] [phone] [id number] ROSSANA LARA Self - patient is the insured Medical (General) History Medical History History ICD Code colon and egd 05-27-2011 gastroesophageal reflux disease with Bar rett's esophagus thyroid cancer coronary disease and history of angiopla sty hypertension Surgical History Surgery Date(Month/Year) thyroidectomy breast biopsy appendectomy foot surgery ear surgery angioplasty 2000 shoulder michael [facility]
--- OUTSIDE RECORDS SUMMARY | 2024-10-29 12:49 | XMS_ITS | Clinical Summary ---
Author Organization [facility] Address [address] [place] [address] [place] [address] Phone Care Team Providers Care Loom Stop Checker Name Role Phone Edvin Pisano MD Primary Care Provider [phone] Allergies Active Allergy Reactions Criticality Noted Date Comments Niacin 08/19/2020 Itucohp-Ljz-Xrq Reductase Inhibitors 08/19/2020 Tramadol 08/19/2020 Medications fenofibrate (TRICOR) 145 mg tablet TAKE 1 TABLET BY MOUTH DAILY 90 tablet 1 05/01/2024 Active losartan (COZAAR) 100 mg tablet TAKE 1 TABLET BY MOUTH DAILY 90 tablet 1 05/01/2024 Active amLODIPine (NORVASC) 5 mg tablet TAKE 1 TABLET BY MOUTH DAILY 90 tablet 1 05/01/2024 Active cholecalciferol (VITAMIN D-3) 50 mcg (2,000 unit) capsule Take 1 Capsule by mouth daily. Active multivitamin (Multiple Vitamins) tablet Take 1 Tablet by mouth daily. Active levothyroxine sodium (TIROSINT) 75 mcg capsule Take 75 mcg by mouth daily. Active aspirin 81 mg EC tablet Take 81 mg by mouth daily Active hydroCHLOROthia zide 12.5 mg tablet Take 12.5 mg by mouth daily. Active atenoloL (TENORMIN) 50 mg tablet Take by mouth 1 (one) time each day. Active omeprazole (PriLOSEC) [address] capsule Take 1 capsule (10 mg total) by mouth 1 (one) time each day. Do not crush or chew. Active Active Problems Problem Noted Date Diagnosed Date Cramps of lower extremity 01/14/2022 Overview (05/09/2024): Last Assessment & Plan: Patient complains of cramping of the lower extremities. She is taking magnesium but still has nocturnal cramps I recommended that she try quinine water at night. These are not exertional discomfort and is not indicative of claudication. Hypertension 01/14/2022 Overview (05/09/2024): Last Assessment & Plan: Blood pressure slightly elevated today but I am not going to be overly aggressive trying to control this at this time for her. Will continue to follow Assessment & Plan (08/21/2024 10:11 AM EDT): Blood pressure is under excellent control with a reading today of 130/66. She will continue with hydrochlorothiazide, losartan, amlodipine and atenolol as prescribed. Coronary artery disease 08/19/2020 Overview (05/09/2024): Last Assessment & Plan: Very remote history of coronary disease asymptomatic no signs or symptoms of progression Assessment & Plan (08/21/2024 10:11 AM EDT): Patient has history of coronary artery disease with previous bare-metal stent to the LAD. She feels well and denies any exertional anginal symptoms. She continues on cardio active medical therapy with aspirin, beta-betty and fenofibrate. She recently had labs done with her primary care provider and we will obtain for review. I have reviewed with the patient the importance of a heart healthy lifestyle which includes eating a low-fat low-salt diet, getting regular exercise, maintaining a healthy weight, not smoking, and following up with routine medical care. Diarrhea 08/19/2020 Overview (05/09/2024): Last Assessment & Plan: Patient with complaints of diarrhea this seems to be around the time of her cholecystectomy. Patient could be lactose intolerant she is trying to use lactose-free foods. She may need to discuss that the soft stool with her primary care physician she may have a mild dumping syndrome secondary to the cholecystectomy she denies any mucus or blood Hyperlipidemia 08/19/2020 Overview (05/09/2024): Last Assessment & Plan: Lipids are under good medical management continue to supply therapy Assessment & Plan (08/21/2024 10:11 AM EDT): Goal LDL cholesterol is less than 70. She continues on fenofibrate. Encounters Date Type Department Care Team Description 08/21/2024 10:10 AM EDT Office Visit [facility] Cardiology [facility] [address] [place] [address] Florence Dobson NP Coronary artery disease, unspecified vessel or lesion type, unspecified whether angina present, unspecified whether [place] or transplanted heart (Primary Dx); Primary hypertension; Mixed hyperlipidemia from Last 3 Months Social History Tobacco Use Types Packs/Day Years Used Date Smoking Tobacco: Never Smokeless Tobacco: Never Tobacco Cessation:Counseling Given: Not Answered Alcohol Use Standard Drinks/Week Comments Never 0 (1 standard drink = 0.6 oz pur e alcohol) Comments Unknown Sex and Gender Information Value Date Recorded Sex Assigned at Not on file Legal Sex Female 4:46 PM EST Gender Identity Not on file Sexual Orientation Not on file Obstetrics History Last Filed Vital Signs Vital Sign Reading Time Taken Comments Blood Pressure 130/66 08/21/2024 9:47 AM EDT Pulse 62 08/21/2024 9:47 AM EDT Temperature - - Respiratory Rate - - Oxygen Saturation 98% 08/21/2024 9:47 AM EDT Inhaled Oxygen Concentration - - Weight 49.9 kg (110 lb) 08/21/2024 9:47 AM EDT Height 154.9 cm (5' 1 ) 08/21/2024 9:47 AM EDT Body Mass Index 20.78 08/21/2024 9:47 AM EDT Plan of Treatment Health Maintenance Due Date Last Done Comments DTaP,Tdap,and Td Vaccines (1 - Tdap) 09/20/1954 Zoster Vaccines (1 of 2) 09/20/1954 RSV Immunization Adult Patients (1 - 1-dose 75+ series) 09/20/2011 Cholesterol Screening (Lipid Panel) 02/02/2022 Falls Risk Assessment 02/02/2022 Osteoporosis Screening (Bone Density Screening) 02/02/2022 Social Influencers of Health Screening 02/02/2022 Hypertension/CHF/CAD Annual BMP Blood Test 02/16/2022 Medicare Annual Wellness Visit 01/20/2023 01/20/2022 Depression Screening 03/06/2024 COVID-19 Vaccine (8 - Pfizer risk season) 2024 01/09/2024, 12/16/2022, 01/14/2022, Additional history exists Influenza Vaccine (#1) 2024 , 12/16/2022, 01/13/2022, Additional history exists Pneumococcal Vaccine: 50+ Years Completed 02/18/2019, 11/01/2017, 03/17/2015 HIB Vaccines Aged Out No longer eligi ble based on patient's age to complete this topic HPV Vaccines Aged Out No longer eligi ble based on patient's age to complete this topic Hepatitis A Vaccines Aged Out No long er eligible based on patient's age to complete this topic Hepatitis B Vaccines Aged Out No long er eligible based on patient's age to complete this topic IPV Vaccines Aged Out No longer eligi ble based on patient's age to complete this topic MMR Vaccines Aged Out No longer eligi ble based on patient's age to complete this topic Meningococcal ACWY Vaccine Aged Out N o longer eligible based on patient's age to complete this topic Meningococcal B Vaccine Aged Out No l onger eligible based on patient's age to complete this topic RSV Immunization Patients Under 20 months Aged Out No longer eligible based on patient's age to complete this topic Varicella Vaccines Aged Out No longer eligible based on patient's age to complete this topic Procedures Procedure Name Priority Date/Time Associated Diagnosis Comments ECG 12-LEAD Routine 08/21/2024 10:11 AM EDT Coronary artery disease, unspecified vessel or lesion type, unspecified whether angina present, unspecified whether [place] or transplanted heart from Last 3 Months Results * ECG 12 lead (08/21/2024 10:11 AM EDT) Ventricular Rate ECG 62 BPM GEMUSE Atrial Rate 62 BPM GEMUSE P-R Interval 214 ms GEMUSE QRS Duration 88 ms GEMUSE Q-T Interval 398 ms GEMUSE QTc 403 ms GEMUSE P Wave [place] 67 degrees GEMUSE R [place] -13 degrees GEMUSE T [place] 48 degrees GEMUSE ECG Interpretation Sinus rhythm with 1st degree A-V block Otherwise normal ECG No previous ECGs available Confirmed by Yaz WILL JAMES ([id number]) on 08/21/2024 10:14:51 AM GEMUSE 08/21/2024 9:53 AM EDT 08/21/2024 10:14 AM EDT us Florence Dobson ENAMEL FINISHER ECG ORDERABLES Edited Resul t - Final GEMUSE from Last 3 Months Insurance MEDICARE [facility] Care Teams Loom Stop Checker Relationship Specialty Start Date End Date Edvin Pisano MD [address] [place] [address] [place] [address] PCP - General Internal Medicine 01/17/12
== END 2024-10-29 12:37 | disposition home or self-care (01) ==
LOC: HO.HMCHD 11:54
PROVIDERS: PCP Family Medicine; Visit Provider Physician Assistant
DX: I25.10 Atherosclerotic heart disease of native coronary artery without angina pectoris (principal); E78.5 Hyperlipidemia, unspecified; E03.9 Hypothyroidism, unspecified; D05.01 Lobular carcinoma in situ of right breast; R25.2 Cramp and spasm; I78.1 Nevus, non-neoplastic; I10 Essential (primary) hypertension

== ENCOUNTER → 2024-10-29 11:53 | Outpatient (BNVA) | payer MEDICARE, SELFPAY | PROVIDERS: PCP Family Medicine; Visit Provider Physician Assistant | DX: I25.10 Atherosclerotic heart disease of native coronary artery without angina pectoris (principal); E78.5 Hyperlipidemia, unspecified; E03.9 Hypothyroidism, unspecified; D05.01 Lobular carcinoma in situ of right breast; R25.2 Cramp and spasm; I78.1 Nevus, non-neoplastic; I10 Essential (primary) hypertension; Z79.82 Long term (current) use of aspirin; Z79.899 Other long term (current) drug therapy; Z13.39 Encounter for screening examination for other mental health and behavioral disorders; Z13.30 Encounter for screening examination for mental health and behavioral disorders, unspecified | CPT/HCPCS: 96127; 99202 ==

== ENCOUNTER 2024-10-30 09:35 | Outpatient (REF) | payer MEDICARE, SELFPAY ==
--- OUTSIDE RECORDS SUMMARY | 2024-10-30 10:14 | XMS_ITS | Clinical Summary ---
Author Organization [id number] Address [address] [place] [address] Phone Care Team Providers Care Resident Service Coordinator Name Role Phone Edvin Pisano MD Primary Care Provider [phone] Allergies Active Allergy Reactions Criticality Noted Date Comments Niacin 08/19/2020 Ofpzcsj-Zyp-Seb Reductase Inhibitors 08/19/2020 Tramadol 08/19/2020 Medications fenofibrate [...] Description 08/21/2024 10:10 AM EDT Office Visit [facility] Cardiology [facility] [address] [place] [address] Florence Dobson NP Coronary artery disease, unspecified vessel or lesion type, unspecified whether angina present, unspecified whether [place] or transplanted heart (Primary Dx); Primary hypertension; [...] type, unspecified whether angina present, unspecified whether [place] or transplanted heart from Last 3 Months Results * ECG 12 lead (08/21/2024 10:11 AM EDT) Ventricular Rate ECG 62 BPM GEMUSE Atrial Rate 62 BPM GEMUSE P-R Interval 214 ms GEMUSE QRS Duration 88 ms GEMUSE Q-T Interval 398 ms GEMUSE QTc 403 ms GEMUSE P Wave [place] 67 degrees GEMUSE R [place] -13 degrees GEMUSE T [place] 48 degrees GEMUSE ECG Interpretation Sinus rhythm with 1st degree A-V block Otherwise normal ECG No previous ECGs available Confirmed by Yaz WILL JAMES ([id number]) on 08/21/2024 10:14:51 AM GEMUSE 08/21/2024 9:53 AM EDT 08/21/2024 10:14 AM EDT us Florence Dobson [employer] ECG ORDERABLES Edited Resul t - Final GEMUSE from Last 3 Months Insurance MEDICARE [facility] Care Teams Resident Service Coordinator Relationship Specialty Start Date End Date Edvin Pisano MD [address] [place] [address] [place] [id number] PCP - General Internal Medicine 01/17/12
--- OUTSIDE RECORDS SUMMARY | 2024-10-30 10:14 | XMS_ITS | Patient Health Record ---
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) Active confirmed Problem 235036472 Generalized abdominal pain (R10.84) Active confirmed Problem 234103306 Family history of colon cancer (Z80.0) Active [...] OF [place] [address] [place] [address] [id number] ROSSANA LARA Self - patient is the insured [employer] ATT[employer] CLAIMS [address] [place] [address] [id number] ROSSANA LARA Self - patient is the insured Medical (General) History Medical History History ICD Code colon and egd 05-27-2011 gastroesophageal reflux disease with Bar rett's esophagus thyroid cancer coronary disease and history of angiopla sty hypertension Surgical History Surgery Date(Month/Year) thyroidectomy breast biopsy appendectomy foot surgery ear surgery angioplasty 2000 shoulder michael [facility]g [facility]
[2024-10-30 11:24] LABS: Alanine Aminotransferase 26 U/L (0-31); Albumin Level 3.9 g/dL (3.5-5.0); Alkaline Phosphatase 47 U/L (39-117); Anion Gap 10 (12-20); Aspartate Amino Transferase 56 U/L (5-31); Blood Urea Nitrogen 27 mg/dL (9-16); Calcium 9.2 mg/dL (8.4-10.2); Carbon Dioxide 28 mmol/L (22-29); Chloride 106 mmol/L (96-108); Cholesterol 124 mg/dL (<200); Estimated Glomerular Filt Rate 51; HDL Cholesterol 47 mg/dL (>40); Magnesium 1.8 mg/dL (1.6-2.6); Potassium 3.9 mmol/L (3.3-5.1); Sodium 140 mmol/L (135-145); Total Protein 6.2 g/dL (6.5-8.0); Triglycerides 67 mg/dL (<150)
== END 2024-10-30 09:36 | disposition home or self-care (01) ==
LOC: HO.LAB 09:35
PROVIDERS: Visit Provider Physician Assistant
DX: I25.10 Atherosclerotic heart disease of native coronary artery without angina pectoris (principal); I78.1 Nevus, non-neoplastic; E03.9 Hypothyroidism, unspecified; E78.5 Hyperlipidemia, unspecified; R25.2 Cramp and spasm
CPT/HCPCS: 36415; 80048; 80061; 80076; 83735; 84443

== ENCOUNTER 2024-11-05 09:26 | Outpatient (AMB) | payer MEDICARE, SELFPAY ==
--- NOTE | 2024-11-05 09:39 | A.OFFVIS_ITS ---
Vital Signs 11/05/24 09:43 Height 5 ft 2 in Weight 110 lb BMI 20.1 BP 157/67 H Blood Pressure Location Lt brachial Position Sitting Pulse 67 Intake Visit Reasons: yearly breast exam Intake Note: Patient is seen in office for yearly breast exam. Pt c/o: denies any concerns at the time of visit mm sched: 01/09/25 Manager Battery Required: No Accompanied by: Self / Same As Patient Allergies tramadol Allergy (Unknown, Verified 11/05/24 09:46) oral swelling Medication List - Last Reconciled 11/05/24 by Leighton Abdul MD amlodipine 7.5 mg PO DAILY aspirin (Adult Low Dose Aspirin) 81 mg PO DAILY atenolol 50 mg PO BID fenofibrate nanocrystallized 145 mg PO DAILY levothyroxine 75 mcg PO DAILY losartan 100 mg PO DAILY zzemcxzz-poe-qype-FA-vit K-lut 8 mg iron-400 mcg-50 mcg (Centrum Silver Women) 1 tab PO DAILY omeprazole 10 mg PO QAM HPI Comments Details: 89-year-old female patient with history of LCIS right breast returning for follow-up breast examination. Patient underwent screening mammography in September 2013 which was interpreted as BI-RADS 2 annual screening recommended however a palpable mass was noted 1 month later after which a diagnostic mammogram was performed on 10/11/2013. This revealed a similar appearance therefore a diagnostic ultrasound was performed in the 6 o'clock position at the site of the palpable abnormality. This revealed a suspicious density and ultrasound-guided core biopsy was recommended. 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 Wide excision was recommended to assure complete removal. She underwent a right breast lumpectomy with needle localization by Dr. Trujillo on 11/13/2013. Pathology revealed a papilloma, sclerosing fibroadenoma, with associated LCIS. Her most recent mammogram of 01/08/2024 revealed no mammographic evidence of malignancy (BI-RADS 1). She is scheduled for a annual mammogram on 01/09/2025. Patient feels well and denies any new breast symptoms, breast pain, nipple discharge, or other palpable masses. [facility] Medical History Hypertension Bilateral leg cramps Hypothyroidism Lobular carcinoma in situ (LCIS) of right breast Hyperlipidemia Myocardial infarction Coronary artery disease Barretts esophagus Surgical History History of laparoscopic cholecystectomy (06/05/17) History of drainage of abscess (06/05/13) History of lumpectomy of right breast History of arthroscopy of right shoulder (02/11/16) History of ear surgery History of thyroidectomy History of appendectomy History of dilatation and curettage History of hysterectomy History of colonoscopy (~05/27/11) History of endoscopy History of right breast biopsy (11/13/13) Family History Father Pancreatic cancer Brother Pancreatic cancer Lung cancer Colon cancer Sister Stomach cancer Sister Lung cancer Social History Housing: House (With daughter) Alcohol intake: current Patient Tobacco Use Status: Never used Tobacco e-Cigarette/Vaping Use: Never Used service: No Current occupational status: retired Cognitive needs: No Hearing needs: Yes (right only) Vision needs: No Review of Systems Const All systems reviewed & are unremarkable except as noted in HPI and below ENT Denies Normal hearing present Neuro Denies Normal hearing present Physical Exam Vital Signs: Last Vital Signs Pulse 67 11/05/24 09:43 BP 157/67 H 11/05/24 09:43 BMI result Body Mass Index 20.1 Const General: cooperative, comfortable, no acute distress, well developed, alert and awake HEENT Other: RUBY Chest Other: Right breast: Well-healed incision in the 6 o'clock position oriented transversely with no underlying mass. No skin changes, no nipple retraction, no nipple discharge, no new palpable masses, and no enlarged axillary lymph nodes. Left breast: No skin changes, no nipple discharge, no nipple retraction, no palpable mass, no enlarged lymph nodes. Resp Effort & Inspection: normal respiratory effort Cardio Jugular venous distension: no JVD Skin General skin exam: no rashes or lesions noted Neuro Other: Mobility Assessment: 1. 3 meter assessment time (seconds)7 2. Gait observations: slow tentative pace Cranial nerves: No Normal hearing present Extrem General: Yes no clubbing, cyanosis or edema Assessment & Plan Assessment & Plan (1) Lobular carcinoma in situ (LCIS) of right breast: Comment: She is doing well with regard to her elevated risk of breast cancer. Code(s): D05.01 - Lobular carcinoma in situ of right breast Category: Medical Plan: 89-year-old female patient returning for follow-up breast examination after being diagnosed with lobular carcinoma in Situ of the right breast. She continues to do well and her most recent mammogram of 01/08/2024 revealed no mammographic evidence of malignancy (BI-RADS 1). On examination she is found to have a well-healed incision in the right breast in the 6 o'clock position. No new palpable mass, skin change, or enlarged lymph nodes are appreciated. There is no evidence of recurrence disease. She should continue self examination, yearly mammography. Asked her to return in 1 year for follow-up breast examination. Coding Level of Care Code Est Pt Level 3 (25268) Complex EM visit Add On G2211 Diagnoses Lobular carcinoma in situ (LCIS) of right breast D05.01
[2024-11-05 09:43] VITALS: BP 157/67; PULSE 67; BMI 20.1
--- OUTSIDE RECORDS SUMMARY | 2024-11-05 10:25 | XMS_ITS | Patient Health Record ---
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) Active confirmed Problem 439249433 Generalized abdominal pain (R10.84) Active confirmed Problem 574544465 Family history of colon cancer (Z80.0) Active [...] OF [place] [address] [place] [address] [id number] ROSSANA LARA Self - patient is the insured [employer] ATTN CLAIMS [address] [place] [address] [id number] ROSSANA LARA Self - patient is the insured Medical (General) History Medical History History ICD Code colon and egd 05-27-2011 gastroesophageal reflux disease with Bar rett's esophagus thyroid cancer coronary disease and history of angiopla sty hypertension Surgical History Surgery Date(Month/Year) thyroidectomy breast biopsy appendectomy foot surgery ear surgery angioplasty 2000 shoulder michael [facility]g Instrum
--- OUTSIDE RECORDS SUMMARY | 2024-11-05 10:25 | XMS_ITS | Clinical Summary ---
Author Organization [facility] Address [address] [place] [address] Phone Care Team Providers Care Law Examiner Name Role Phone Edvin Pisano MD Primary Care Provider [phone] Allergies Active Allergy Reactions Criticality Noted Date Comments Niacin 08/19/2020 Rkrzkdm-Pqf-Wgb Reductase Inhibitors 08/19/2020 Tramadol 08/19/2020 Medications amLODIPine (NORVASC) 5 mg tablet TAKE 1 TABLET BY MOUTH DAILY 90 tablet 1 5 Active cholecalcifero l (VITAMIN D-3) 50 mcg (2,000 unit) capsule Take 1 Capsule by mouth daily. Active multivitamin (Multiple Vitamins) tablet Take 1 Tablet by mouth daily. Active levothyroxine sodium (TIROSINT) 75 mcg capsule Take 75 mcg by mouth daily. Active aspirin 81 mg EC tablet Take 81 mg by mouth daily Active hydroCHLOROthi azide 12.5 mg tablet Take 12.5 mg by mouth daily. Active atenoloL (TENORMIN) 50 mg tablet Take by mouth 1 (one) time each day. Active omeprazole (PriLOSEC) [address] capsule Take 1 capsule (10 mg total) by mouth 1 (one) time each day. Do not crush or chew. Active fenofibrate (TRICOR) 145 mg tablet TAKE 1 TABLET BY MOUTH DAILY 90 tablet 1 5 Active losartan (COZAAR) 100 mg tablet TAKE 1 TABLET BY MOUTH DAILY 90 tablet 1 5 Active fenofibrate (TRICOR) 145 mg tablet TAKE 1 TABLET BY MOUTH DAILY 90 tablet 1 5 11/02/19 25 Discontinued losartan (COZAAR) 100 mg tablet TAKE 1 TABLET BY MOUTH DAILY 90 tablet 1 5 11/02/19 25 Discontinued Active Problems Problem Noted Date Diagnosed Date [...] Description 08/21/2024 10:10 AM EDT Office Visit [facility] [address] [place] [address] Florence Dobson NP Coronary artery disease, unspecified vessel or lesion type, unspecified whether angina present, unspecified whether [place] or transplanted heart (Primary Dx); Primary hypertension; [...] type, unspecified whether angina present, unspecified whether [place] or transplanted heart from Last 3 Months Results * ECG 12 lead (08/21/2024 10:11 AM EDT) Ventricular Rate ECG 62 BPM GEMUSE Atrial Rate 62 BPM GEMUSE P-R Interval 214 ms GEMUSE QRS Duration 88 ms GEMUSE Q-T Interval 398 ms GEMUSE QTc 403 ms GEMUSE P Wave [place] 67 degrees GEMUSE R [place] -13 degrees GEMUSE T [place] 48 degrees GEMUSE ECG Interpretation Sinus rhythm with 1st degree A-V block Otherwise normal ECG No previous ECGs available Confirmed by Yaz WILL JAMES ([id number]) on 08/21/2024 10:14:51 AM GEMUSE 08/21/2024 9:53 AM EDT 08/21/2024 10:14 AM EDT us Florence Dobson BATCH MIXER OPERATOR ECG ORDERABLES Edited Resul t - Final GEMUSE from Last 3 Months Insurance MEDICARE [facility] Care Teams Law Examiner Relationship Specialty Start Date End Date Edvin Pisano MD [address] [place] [address] [place] [address] PCP - General Internal Medicine 01/17/12
== END 2024-11-05 09:59 | disposition home or self-care (01) ==
LOC: HO.HGS 09:26
PROVIDERS: PCP Family Medicine; Visit Provider Surgery
DX: D05.01 Lobular carcinoma in situ of right breast (principal)
CPT/HCPCS: 99213; G2211

== ENCOUNTER → 2024-11-05 09:26 | Outpatient (BNVA) | payer MEDICARE, SELFPAY | PROVIDERS: PCP Family Medicine; Visit Provider Surgery | DX: Z09 Encounter for follow-up examination after completed treatment for conditions other than malignant neoplasm (principal); Z86.000 Personal history of in-situ neoplasm of breast | CPT/HCPCS: 99212 ==

== ENCOUNTER 2024-11-13 10:13 | Outpatient (AMB) | payer MEDICARE, SELFPAY ==
--- NOTE | 2024-11-13 10:16 | MHC.PC.OV ---
Vital Signs 11/13/24 10:20 Height 5 ft 2 in Weight 49.895 kg BMI 20.1 BP 128/50 L Respiration 16 Pulse 63 Pulse Source Pulse Oximeter Temp 97.9 F Temp Source Temporal Artery Scan Pulse Oximetry (%) 98 Oxygen Delivery Method Room Air Intake Visit Reasons: 2 wk follow Build Master Required: No Accompanied by: Daughter Allergies tramadol Allergy (Unknown, Verified 11/13/24 10:17) oral swelling Tobacco use date assessed: 10/29/24 Dental Screening Dental Screen Date: 10/29/24 HPI HPI Comments History of Present Illness Details 81-year-old female with history of hypothyroidism, hypertension, GERD/Swartz's esophagus, history of LCIS, coronary artery disease presenting to the office today for re-evaluation. She is accompanied by her daughter. Hypothyroidism- follows with [facility], but has not seen in 3 years. Due for TSH. On levothyroxine 75mcg HTN- hydrochlorothiazide discontinued at last visit due to leg cramping. Amlodipine increased to 7.5 mg daily, continued on losartan 100mg, atenolol 50mg bid. Blood pressure in the office 128/50 GERD/Swartz's- stable on prilosec Hx breast CA- follows annually for breast exams with Dr. Abdul. Does mammograms annually CAD- follows with Dr. Ortiz [facility] cardiology . On aspirin and atenolol Concerns: Leg cramping- ongoing for years. HCTZ discontinued with resolution of cramping. However she does continue experiencing heaviness in her legs when she walks but denies any pain with ambulation. She did have a single episode of significant edema several weeks ago while in [place] and was unable to put her shoes on. This resolved and has not recurred. She does have upcoming appointment with vascular surgery to reassess and evaluate the leg heaviness as well as her telangiectasia/varicose veins. Her daughter also notes that she does sit for prolonged periods. Health Maintenance: Last colonoscopy 2011, p.r.n. basis Last mammogram 01/2024, annual follow-up ROS: General: No fevers, malaise, unintentional weight loss HEENT: No blurred vision, diplopia. No sore throat, nasal congestion, rhinorrhea, sinus pain, ear pain Cardiovascular: No chest pain, palpitations. see hpi Respiratory: No shortness of breath, wheezing, cough GI: No abdominal pain, nausea, vomiting, diarrhea, constipation, melena, hematochezia : No dysuria, hematuria, increased urinary frequency, decreased urinary output MSK: No myalgia, back pain Neuro: No headaches, weakness, paresthesias Skin: No rashes or lesions EXAM: Constitutional - Awake and Alert, No apparent distress Eyes - PERRL Cardiovascular - S1S2, RRR, No edema Respiratory - Normal lung expansion, Normal respiratory effort, No respiratory distress, CTA bilaterally Extremities - no calf tenderness bilaterally, no swelling. Telangectasias bilateral lower legs with ttp and several prominent variscocities medical lower leg Skin - Warm/Dry Neurological - Alert & oriented x3 Psychological - Appropriate affect PFSH Medical History Hypertension Bilateral leg cramps Hypothyroidism Lobular carcinoma in situ (LCIS) of right breast Hyperlipidemia Myocardial infarction Coronary artery disease Barretts esophagus Surgical History History of laparoscopic cholecystectomy (06/05/17) History of drainage of abscess (06/05/13) History of lumpectomy of right breast History of arthroscopy of right shoulder (02/11/16) History of ear surgery History of thyroidectomy History of appendectomy History of dilatation and curettage History of hysterectomy History of colonoscopy (~05/27/11) History of endoscopy History of right breast biopsy (11/13/13) Family History Father Pancreatic cancer Brother Pancreatic cancer Lung cancer Colon cancer Sister Stomach cancer Sister Lung cancer Social History Housing: House (With daughter) Alcohol intake: current Patient Tobacco Use Status: Never used Tobacco e-Cigarette/Vaping Use: Never Used service: No Current occupational status: retired Cognitive needs: No Hearing needs: Yes (right only) Vision needs: No Questionnaire Thrive Questionnaire Date Thrive assessed: 10/29/24 LUIS EDUARDO-7 AMB Questionnaire LUIS EDUARDO-7 Date LUIS EDUARDO - 7 assessed: 10/29/24 Source: Developed by Drs. Jacinto Hernandez, Atiya B.W. Mukesh Bedoya and colleagues, with an educational dominic from [employer]. Physical exam (Primary Care) Vital Signs: Last Vital Signs Temp 97.9 F 11/13/24 10:20 Pulse 63 11/13/24 10:20 Resp 16 11/13/24 10:20 BP 128/50 L 11/13/24 10:20 Pulse Ox 98 11/13/24 10:20 Oxygen Delivery Method Room Air 11/13/24 10:20 BMI result Body Mass Index 20.1 Tobacco/Smoking Status: Tobacco use Status Tobacco use date assessed 10/29/24 11/13/24 10:16 Patient Tobacco Use Status Never used Tobacco 11/13/24 10:16 e-Cigarette/Vaping Use Never Used 11/13/24 10:16 Thrive Assessment: Date of Thrive Assessment Date Thrive assessed 10/29/24 11/13/24 10:16 Coding Level of Care Code Est Pt Level 4 (99294) Complex EM visit Add On G2211 Diagnoses Leg heaviness R29.898 Hypertension I10 Hyperlipidemia E78.5 Hypothyroidism E03.9 Bilateral leg cramps R25.2 Assessment & Plan Assessment & Plan (1) Leg heaviness: Code(s): R29.898 - Other symptoms and signs involving the musculoskeletal system Category: Medical Plan: Follow-up with vascular surgery as scheduled. Recommend compression stockings and leg elevation (2) Hypertension: Code(s): I10 - Essential (primary) hypertension Category: Medical Plan: Controlled. Continue current therapies. Will remain off hydrochlorothiazide given resolution of leg cramping (3) Hyperlipidemia: Code(s): E78.5 - Hyperlipidemia, unspecified Category: Medical Plan: At goal. Continue diet low in saturated fat and highly processed foods (4) Hypothyroidism: Code(s): E03.9 - Hypothyroidism, unspecified Category: Medical Plan: Euthyroid. Continue levothyroxine (5) Bilateral leg cramps: Code(s): R25.2 - Cramp and spasm Category: Medical Plan: Resolved. Remain off of hydrochlorothiazide Plan Follow-up in the office in 4 months with labs completed prior to visit Orders: Orders Liver Panel 4 Months E03.9 - Hypothyroidism, unspecified, E78.5 - Hyperlipidemia, unspecified, I10 - Essential (primary) hypertension, I25.10 - Atherosclerotic heart disease of [place] coronary artery without angina pectoris TSH reflex Free T4 4 Months E03.9 - Hypothyroidism, unspecified, E78.5 - Hyperlipidemia, unspecified, I10 - Essential (primary) hypertension, I25.10 - Atherosclerotic heart disease of [place] coronary artery without angina pectoris Basic Metabolic Panel 4 Months E03.9 - Hypothyroidism, unspecified, E78.5 - Hyperlipidemia, unspecified, I10 - Essential (primary) hypertension, I25.10 - Atherosclerotic heart disease of [place] coronary artery without angina pectoris Patient Instructions: Can call a vascular to get on a cancellation list if needed Compressions stockings for swelling or if leg cramping recurs 25-35 mmHg compression knee high
[2024-11-13 10:20] VITALS: BP 128/50; PULSE 63; RESP 16; TEMP 36.6; O2SAT 98; BMI 20.1
--- OUTSIDE RECORDS SUMMARY | 2024-11-13 12:25 | XMS_ITS | Patient Health Record ---
Author Organization [facility] Address [address] [place] [address] Care Team Providers Care Ranch Hand Supervisor Name Role Phone Norris (RETIRED) Edvin GOLDMAN [...] Problem Status W/U Status Risk Notes Problem [id number] Colon cancer screening (Z12.11) Active confirmed Problem 245906614 Swartz's esophagus without dysplasia (K22.70) Active confirmed Problem 708756293 Generalized abdominal pain (R10.84) Active confirmed Problem 257342665 Family history of colon cancer (Z80.0) Active [...] OF [place] [address] [place] [address] [id number] ROSSANA LARA Self - patient is the insured [employer] ATTN CLAIMS [address] [place] [address] [phone] [id number] ROSSANA LARA Self - patient is the insured Medical (General) History Medical History History ICD Code colon and egd 05-27-2011 gastroesophageal reflux disease with Bar rett's esophagus thyroid cancer coronary disease and history of angiopla sty hypertension Surgical History Surgery Date(Month/Year) thyroidectomy breast biopsy appendectomy foot surgery ear surgery angioplasty 2000 shoulder michael Rg Instrum
== END 2024-11-13 10:52 | disposition home or self-care (01) ==
LOC: HO.HMCHD 10:14
PROVIDERS: PCP Family Medicine; Visit Provider Physician Assistant
DX: R29.898 Other symptoms and signs involving the musculoskeletal system (principal); I10 Essential (primary) hypertension; E78.5 Hyperlipidemia, unspecified; E03.9 Hypothyroidism, unspecified; R25.2 Cramp and spasm

== ENCOUNTER → 2024-11-13 10:13 | Outpatient (BNVA) | payer MEDICARE, SELFPAY | PROVIDERS: PCP Family Medicine; Visit Provider Physician Assistant | DX: E03.9 Hypothyroidism, unspecified (principal); E78.5 Hyperlipidemia, unspecified; I25.10 Atherosclerotic heart disease of native coronary artery without angina pectoris; R25.2 Cramp and spasm; I78.1 Nevus, non-neoplastic; R29.898 Other symptoms and signs involving the musculoskeletal system; I10 Essential (primary) hypertension | CPT/HCPCS: 99212 ==

== ENCOUNTER 2025-01-07 10:11 | Outpatient (AMB) | payer MEDICARE, SELFPAY ==
--- NOTE | 2025-01-07 10:28 | A.OFFVIS_ITS ---
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 Patient gets cramping at night, states its been about 2 years. Her feet have had ongoing discoloration. 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 The cramping has been persistent for the last two years, affecting both legs equally and is severe enough to prevent her from standing at times. She also reports bilateral leg swelling, which was severe in the past during hot weather, preventing her from wearing shoes. Compression stockings have been used, providing some relief despite not being the recommended strength. It has been affecting there daily activities including walking. It is noted more so in right leg. Of note daughter provide pictures which demonstrated significant swelling of bilateral calf ankle and dorsum of feet. Patient denies any previous venous surgery or injections. Patient denies any history of DVT/ PE. Patient denies any history of phlebitis. Trial of compression includes - [id number] They now present for vascular evaluation regarding their varicose veins. [facility] Medical History Hypertension Bilateral leg cramps Hypothyroidism Lobular carcinoma in situ (LCIS) of right breast Hyperlipidemia Myocardial infarction Coronary artery disease Barretts esophagus Surgical History History of laparoscopic cholecystectomy (06/05/17) History of drainage of abscess (06/05/13) History of lumpectomy of right breast History of arthroscopy of right shoulder (02/11/16) History of ear surgery History of thyroidectomy History of appendectomy History of dilatation and curettage History of hysterectomy History of colonoscopy (~05/27/11) History of endoscopy History of right breast biopsy (11/13/13) Family History Father Pancreatic cancer Brother Pancreatic cancer Lung cancer Colon cancer Sister Stomach cancer Sister Lung cancer Social History Housing: House (With daughter) Alcohol intake: current Patient Tobacco Use Status: Never used Tobacco e-Cigarette/Vaping Use: Never Used service: No Current occupational status: retired Cognitive needs: No Hearing needs: Yes (right only) Vision needs: No Review of Systems Const Reports as per HPI ENT Reports no additional complaints Card Denies chest pain, Denies chest pain at rest and Denies chest pain with activity Resp Denies chest congestion and Denies cough GI Reports no additional complaints Musc Details: pain over varicosities, aching of lower extremities, swelling, cramping, heaviness and tiredness, itching Denies abnormal gait Skin/Breast Reports pruritus and Denies wounds Neuro Reports no additional complaints and Denies abnormal gait Psych Denies no additional complaints Physical Exam Const General: cooperative, healthy appearing and comfortable Orientation/consciousness: oriented to person, oriented to place and oriented to time Neck Carotids: no bruits Chest Chest palpation & inspection: normal inspection of the chest and normal palpation of entire chest wall Resp Effort & Inspection: normal respiratory effort and able to speak in complete sentences Cardio Rate: regular rate Heart sounds: S1 normal heart sound present and S2 normal heart sound present Peripheral pulses: Peripheral pulses 2+ throughout GI Inspection: Yes normal to inspection Skin Other: +2 edema, large rope-like varicosities greater than 4 mm CEAP Classification C4 - skin color changes Ep - Etiology Primary As - superficial veins P - reflux General skin exam: dry skin Neuro General: oriented to person, oriented to place and oriented to time Extrem Right lower extremity: full ROM, normal capillary refill and edema Left lower extremity: full ROM, normal capillary refill and edema Psych Mental Status: mental status grossly normal Assessment & Plan Assessment & Plan (1) Varicose veins of right lower extremity with inflammation: Code(s): I83.11 - Varicose veins of right lower extremity with inflammation Category: Medical Plan: In short, the patient has evidence of venous insufficiency. I have discussed the pathophysiology with the patient. In addition I have provided informational material regarding venous disease to the patient. We have discuss ed conservative measures including compression, elevation, and exercise. I have also provided a handout regarding appropriate use of compression stockings and where to purchase good compression stockings as well. I have taken the liberty of ordering venous insufficiency testing with the patient. They will follow up with me after testing. The patient had an opportunity to ask questions regarding the treatment plan. All questions were answered. Imaging studies, laboratory studies and physical exam results were discussed and reviewed in detail. No major barriers to understanding were identified. The patient expressed understanding and agreement with the above treatment plan. The patient is aware they should contact our office by phone for worsening of the current condition or the ap pearance of new symptoms. Thank you for allowing me to participate in the vascular care of this patient. If you have any questions or concerns regarding the treatment for the above condition please do not hesitate to contact me. The office telephone contact is [phone]. This note is constructed using voice recognition software. While every effort has been made to ensure accuracy, circular clerk errors may have been included. Thank you for allowing me to participate in the care of your patient. Yours sincerely, Mauricio Galvan MD, FACS, R.P.V.I. (2) Lymphedema: Code(s): I89.0 - Lymphedema, not elsewhere classified Category: Medical Plan: Patient does have a history of thyroid and breast cancer. We will workup venous disease 1st. Should that prove to be negative may benefit from lymphedema evaluation. Once again she will follow up with us after venous testing. Thank you for allowing us to assist in her care. Orders: Orders US venous duplex LE BI Today I83.11 - Varicose veins of right lower extremity with inflammation Coding Level of Care Code New Pt Level 4 (82030) Diagnoses Varicose veins of right lower extremity with inflammation I83.11 Lymphedema I89.0
--- OUTSIDE RECORDS SUMMARY | 2025-01-07 11:56 | XMS_ITS | Patient Health Record ---
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 Name Role Phone Norris (RETIRED) Edvin GOLDMAN Primary Care Provider Unavailable Mumtaz Blackwood Jr Unavailable Reason For Referral No Information Medications Medication SIG (Take, Route, Frequency, Duration) Notes Start Date End Date Status hydroCHLOROthiazide 12.5 MG 1 capsule Or ally Once a day Active Colyte with Flavor Packs 240 GM As direc shonna Orally Over the specified time.; Duration: 1 day(s) Active Losartan Potassium 50 MG Orally Active Vitamin D 1000 UNIT 1 tablet Orally Once a day Active Centrum Silver - Orally Act jerardo Omeprazole 20 MG take 1 capsule by mouth once daily; Duration: 30 Active Omeprazole 20 MG 1 capsule Orally Onc e a day; Duration: 30 days 10/12/2016 Active Levothyroxine Sodium 100 [...] Problem Status W/U Status Risk Notes Problem Colon cancer screening (913225134) Colon cancer screening (Z12.11) Active confirmed Problem Swartz's esophagus (495551941) Swartz's esophagus without dysplasia (K22.70) Active confirmed Problem Generalized abdominal pain (603012365) Generalized abdominal pain (R10.84) Active confirmed Problem Family History of Cancer of Colon (Situation) (847000405) Family history of colon cancer (Z80.0) Active confirmed Plan Of Treatment Future Test Test Name Order Date UPPER GI ENDOSCOPY 05/18/2011 COLONOSCOPY 05/18/2011 UPPER GI ENDOSCOPY 09/03/2014 UPPER GI ENDOSCOPY 04/27/2017 COLONOSCOPY 04/27/2017 Insurance Providers Payer Name Payer Address Payer Phone Subscriber Number Group Number Insured Name Patient Relationship to Insured Coverage Start Date Coverage End Date MEDICARE OF [place] [address] [facility] [place] [address] [id number] ROSSANA LARA Self - patient is the insured [employer] ATT[employer] CLAIMS [address] [place] [address] [phone] [id number] ROSSANA LARA Self - patient is the insured Medical (General) History Medical History History ICD Code colon and egd 05-27-2011 gastroesophageal reflux disease with Bar rett's esophagus thyroid cancer coronary disease and history of angiopla sty hypertension Surgical History Surgery Date(Month/Year) thyroidectomy breast biopsy appendectomy foot surgery ear surgery angioplasty 2000 shoulder celeste- [facility]
--- OUTSIDE RECORDS SUMMARY | 2025-01-07 11:56 | XMS_ITS | Clinical Summary ---
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 Active multivitamin (Multiple Vitamins) tablet Take 1 Tablet by mouth daily. Active levothyroxine sodium (TIROSINT) 75 mcg capsule Take 75 mcg by mouth daily. Active aspirin 81 mg EC tablet Take 81 mg by mouth daily Active atenoloL (TENORMIN) 50 mg tablet Take by mouth 1 (one) time each day. Active omeprazole (PriLOSEC) [address] capsule Take 1 capsule (10 mg total) by mouth 1 (one) time each day. Do not crush or chew. Active fenofibrate (TRICOR) 145 mg tablet TAKE 1 TABLET BY MOUTH DAILY 90 tablet 1 11/01/2024 Active losartan (COZAAR) 100 mg tablet TAKE 1 TABLET BY MOUTH DAILY 90 tablet 1 11/01/2024 Active amLODIPine (NORVASC) 5 mg tablet Take 1.5 tablets (7.5 mg total) by mouth 1 (one) time each day. Active hydroCHLOROthia zide 12.5 mg tablet Take 1 tablet (12.5 mg total) by mouth 1 (one) time each day. 30 each 5 11/25/2024 Active Active Problems Problem Noted Date Diagnosed Date Edema 12/04/2024 Assessment & Plan (12/04/2024 4:10 PM EDT): Patient with complaints of peripheral edema especially when she was in [place] visiting with her sister. Pictures reviewed from that time. Patient does have significant varicose veins. I did recommend compression stocking as conservative measures. Difficulty with compression stockings in the past. We discussed alternatives such as Zay wrap and elevation. Leg edema is minimal today. Cramps of lower extremity 01/14/2022 Assessment & Plan (12/04/2024 4:10 PM EDT): Patient was complaining of leg cramps. Hydrochlorothiazide was stopped and then restarted at a lower dose. No recurrent leg cramps reported. Labs are stable. Hypertension 01/14/2022 Assessment & Plan (12/04/2024 4:10 PM EDT): Pressure today is under good control with a reading of 120/56. Continue with losartan, low-dose hydrochlorothiazide and atenolol as prescribed. Assessment & Plan (08/21/2024 10:11 AM EDT): Blood pressure is under excellent control with a reading today of 130/66. She will continue with hydrochlorothiazide, losartan, amlodipine and atenolol as prescribed. Coronary artery disease 08/19/2020 Overview (05/09/2024): Last Assessment & Plan: Very remote history of coronary disease asymptomatic no signs or symptoms of progression Assessment & Plan (12/04/2024 4:10 PM EDT): Patient has history of coronary artery disease with previous bare-metal stent to the LAD. She feels well and denies any exertional anginal symptoms. She continues on cardioprotective medical therapy with aspirin, beta-betty and fenofibrate. Recent labs were reviewed and stable. I have reviewed with the patient the importance of a heart healthy lifestyle which includes eating a low-fat low-salt diet, getting regular exercise, maintaining a healthy weight, not smoking, and following up with routine medical care. Assessment & Plan (08/21/2024 10:11 AM EDT): [...] continue to supply therapy Assessment & Plan (12/04/2024 4:10 PM EDT): Goal LDL cholesterol is less than 70. She continues on fenofibrate. Assessment & Plan (08/21/2024 10:11 AM EDT): Goal LDL cholesterol is less than 70. She continues on fenofibrate. Encounters Date Type Department Care Team Description 12/04/2024 3:10 PM EDT Office Visit [facility] [address] [place] [address] Florence Dobson NP Coronary artery disease involving [place] coronary artery of [place] heart without angina pectoris (Primary Dx); Primary hypertension; Mixed hyperlipidemia; Cramps of lower extremity; Edema, unspecified type 11/25/2024 Telephone [facility] [address] [place] [address] Desean Ortiz MD from Last 3 Months Medical History Medical History Date Comments Hypertension Hyperlipidemia Social History Tobacco Use Types Packs/Day Years [...] Sign Reading Time Taken Comments Blood Pressure 120/56 12/04/2024 3:06 PM EDT Pulse 65 12/04/2024 3:06 PM EDT Temperature - - Respiratory Rate - - Oxygen Saturation 97% 12/04/2024 3:06 PM EDT Inhaled Oxygen Concentration - - Weight 49.9 kg (110 lb) 12/04/2024 3:06 PM EDT Height 157.5 cm (5' 2 ) 12/04/2024 3:06 PM EDT Body Mass Index 20.12 12/04/2024 3:06 PM EDT Plan of Treatment Health Maintenance Due Date Last Done Comments DTaP,Tdap,and Td Vaccines (1 - Tdap) 09/20/1954 Zoster Vaccines (1 of 2) 09/20/1954 RSV Immunization Adult Patients (1 - 1-dose 75+ series) 09/20/2011 Cholesterol Screening (Lipid Panel) 02/02/2022 Falls Risk Assessment 02/02/2022 Osteoporosis Screening (Bone Density Screening) 02/02/2022 Social Influencers of Health Screening 02/02/2022 Medicare Annual Wellness Visit 01/20/2023 01/20/2022 Depression Screening 03/06/2024 COVID-19 Vaccine (8 - Pfizer risk season) 2024 01/09/2024, 12/16/2022, 01/14/2022, Additional history exists Influenza Vaccine (#1) 2024 , 12/16/2022, 01/13/2022, Additional history exists Hypertension/CHF/CAD Annual BMP Blood Test 11/25/2025 11/25/2024 Pneumococcal Vaccine: 50+ Years Completed 02/18/2019, 11/01/2017, [...] Procedure Name Priority Date/Time Associated Diagnosis Comments MAGNESIUM Routine 11/25/2024 3:49 PM EDT Localized edema BASIC METABOLIC PANEL Routine 11/25/2024 3:49 PM EDT Localized edema from Last 3 Months Results * Magnesium (11/25/2024 3:49 PM EDT) Magnesium 1.8 1.6 - 2.3 mg/dL [facility] 1 Blood Venous blood specimen / Unknown 11/25/2024 3:49 PM EDT 11/25/2024 Narrative [facility] 1 - 11/26/2024 12:07 PM EDT Performed at: 01 - [facility] [address] [id number] Institutional Cook: Barb Garcia MD, Phone: [phone] us Florence Dobson [employer] LAB BLOOD ORDERABLES Final R esult [facility] 1 * (ABNORMAL) Basic metabolic panel (11/25/2024 3:49 PM EDT) Glucose 100(H) 70 - 99 mg/dL [facility] 1 Blood Urea Nitrogen (BUN) 29(H) 8 - 27 mg/dL [facility] 1 Creatinine 0.84 0.57 - 1.00 mg/dL [facility] 1 eGFR 67 >59 mL/min/1.7 3 [facility] 1 BUN/Creatinine Ratio 35(H) 12 - 28 [facility] 1 Sodium 144 134 - 144 mmol/L [facility] 1 Potassium 4.3 3.5 - 5.2 mmol/L [facility] 1 Chloride 105 96 - 106 mmol/L [facility] 1 Carbon Dioxide 21 20 - 29 mmol/L [facility] 1 Calcium 9.4 8.7 - 10.3 mg/dL [facility] 1 Blood Venous blood specimen / Unknown 11/25/2024 3:49 PM EDT 11/25/2024 Narrative [facility] 1 - 11/26/2024 12:07 PM EDT Performed at: 01 - [facility] [address] [id number] Institutional Cook: Barb Garcia MD, Phone: [phone] us Florence Dobson [employer] LAB BLOOD ORDERABLES Final R esult [facility] 1 from Last 3 Months Insurance MEDICARE [facility] Care Teams Grease Packer Relationship Specialty Start Date End Date Fela Potter NP [address] [place] [address] PCP - General Family Medicine 12/04/24
== END 2025-01-07 11:05 | disposition home or self-care (01) ==
LOC: HO.HVS 10:11
PROVIDERS: PCP Physician Assistant; Visit Provider Surgery Vascular Surgery
DX: I83.11 Varicose veins of right lower extremity with inflammation (principal); I89.0 Lymphedema, not elsewhere classified
CPT/HCPCS: 99204

== ENCOUNTER → 2025-01-07 10:11 | Outpatient (BNVA) | payer MEDICARE, SELFPAY | PROVIDERS: PCP Physician Assistant; Visit Provider Surgery Vascular Surgery | DX: I83.11 Varicose veins of right lower extremity with inflammation (principal) | CPT/HCPCS: 99202 ==

== ENCOUNTER 2025-01-09 10:56 | Outpatient (REF) | payer MEDICARE, SELFPAY ==
--- OUTSIDE RECORDS SUMMARY | 2025-01-09 13:17 | XMS_ITS | Data Portability ---
Author Organization [place] - [facility] Address [address] [address] Assessment Encounter Date Assessment Date Assessment LastModified by Organization Details LastModified Time 10/16/2023 10/16/2023 88 year old female s/p left tympanoplasty and atticotomy with ossiculoplasty for eversion of retraction pocket and reconstruction of the ossicular chain performed 07/06/18 presents for an ear cleaning. Cerumen impaction removed bilaterally. Bilateral TMs are intact. Follow up in 6 months for cerumen removal. [email or web address] Not available 10/16/2023 11:49:43 04/17/2024 04/17/2024 88 year old female s/p left tympanoplasty and atticotomy with ossiculoplasty for eversion of retraction pocket and reconstruction of the ossicular chain performed 07/06/18 presents for an ear cleaning. Cerumen impaction removed bilaterally. Bilateral TMs are intact. Follow up in 6 months for cerumen removal. [email or web address] Not available 04/17/2024 11:18:39 11/25/2024 11/25/2024 89 year old female s/p left tympanoplasty and atticotomy with ossiculoplasty for eversion of retraction pocket and reconstruction of the ossicular chain performed 07/06/18 presents for an ear cleaning. Cerumen impaction removed bilaterally. Bilateral TMs are intact. Follow up in 6 months for cerumen removal. [email or web address] Not available 11/25/2024 15:06:08 Plan of Treatment Reminders Order Date Submit Date Provider Last Modified By Organization Details Last Modified Time Details Appointments Establish ed 15 2025 02:15P M NAHOMI STANLEY PA-C Not available Not available Not available Lab None recorded. Referral None recorded. Procedures None recorded. Surgeries None recorded. Imaging None recorded. Medication Orders None recorded. Patient TargetsNo targets recorded. Patient InstructionsNo instructions recorded. Reason for Referral None Reported. Results Created Date Observation Date Name Description Value Unit Range Abnormal Flag Note LastModifiedBy Organization Detail LastModifiedTime 10/24/19 24 03/15/2018 imagi ng/di agnos tic resul t No observ ation record ed. [email or web address] Not Available 16:13:44 10/24/19 24 04/11/2023 imagi ng/di agnos tic resul t No observ ation record ed. [email or web address] Not Available 16:13:52 10/24/19 24 06/11/2018 imagi ng/di agnos tic resul t No observ ation record ed. [email or web address] Not Available 16:14:05 10/24/19 24 07/16/2019 imagi ng/di agnos tic resul t No observ ation record ed. [email or web address] Not Available 16:14:15 10/24/19 24 09/02/2019 imagi ng/di agnos tic resul t No observ ation record ed. [email or web address] Not Available 16:14:18 10/24/19 24 10/16/2018 imagi ng/di agnos tic resul t No observ ation record ed. [email or web address] Not Available 16:14:23 10/24/19 24 10/16/2018 imagi ng/di agnos tic resul t No observ ation record ed. [email or web address] Not Available 16:14:24 10/24/19 24 01/25/2022 imagi ng/di agnos tic resul t No observ ation record ed. [email or web address] Not Available 16:14:32 10/24/19 24 01/25/2022 imagi ng/di agnos tic resul t No observ ation record ed. [email or web address] Not Available 16:14:34 10/24/19 24 03/30/2021 audio gram No observ ation record ed. [email or web address] Not Available 16:14:42 10/24/19 24 04/04/2023 audio gram No observ ation record ed. [email or web address] Not Available 16:14:45 10/24/19 24 04/08/2021 audio gram No observ ation record ed. [email or web address] Not Available 16:14:46 10/24/19 24 04/11/2023 audio gram No observ ation record ed. [email or web address] Not Available 16:14:47 10/24/19 24 04/12/2021 audio gram No observ ation record ed. [email or web address] Not Available 16:14:49 10/24/19 24 06/14/2022 audio gram No observ ation record ed. [email or web address] Not Available 16:15:05 10/24/19 24 07/21/2020 audio gram No observ ation record ed. [email or web address] Not Available 16:15:11 10/24/19 24 09/02/2019 audio gram No observ ation record ed. [email or web address] Not Available 16:15:15 10/24/19 24 09/12/2019 audio gram No observ ation record ed. [email or web address] Not Available 16:15:16 10/24/19 24 09/25/2019 audio gram No observ ation record ed. [email or web address] Not Available 16:15:17 10/24/19 24 10/16/2019 audio gram No observ ation record ed. [email or web address] Not Available 16:15:20 10/24/19 24 10/16/2018 audio gram No observ ation record ed. [email or web address] Not Available 16:15:22 Result Notes None recorded. Problems Name Problem SNOMED Code Status Onset Date Resolution Date Notes Provider Name and Address Organization Details Recorded Time Otorrhea of left ear 87921759620 99873 Completed 201810/06/2023 Otorrhea , left ear; Note: Date Diagnose d: 05/09/2018 4:34 PM (H92.12) Not Available [facility] 4 02:57:03 Adhesive middle ear disease 5713304 Completed 201810/06/2023 Adhesive left middle ear disease; Note: Date Diagnose d: 05/09/2018 4:34 PM (H74.12) Not Available [facility] 4 02:57:05 Impacted cerumen of bilatera l ears 25354355710 17054 Active 2018 Impacted cerumen, bilatera l; Note: Date Diagnose d: 05/09/2018 4:21 PM (H61.23) JARETH ESPAÑA PA-C [address] [place] [address], [place], [address] , [facility] 5 15:05:59 Sensorin eural hearing loss in right ear 89016495150 100 Active 2018 Sensorin eural hearing loss, unilater al, right ear, with restrict ed hearing on the contrala teral side; Note: Date Diagnose d: 06/07/2018 4:17 PM (H90.A21 ) Not Available [facility] 4 02:57:04 Mixed conducti ve and sensorin eural hearing loss of left ear 70223899449 107 Active 2018 Mixed conducti ve and sensorin eural hearing loss, unilater al, left ear with restrict ed hearing on the contrala teral side; Note: Date Diagnose d: 06/07/2018 4:17 PM (H90.A32 ) Not Available [facility] 4 02:57:02 Partial loss of ear ossicles 08852426 Active 2018 Partial loss of ear ossicles , right ear; Note: Date Diagnose d: 06/07/2018 4:15 PM (H74.321 ) ; Start Date : 06/08/19 19 Parti al loss of ear ossicles , left ear; Note: Date Diagnose d: 07/06/2018 11:27 AM (H74.322 ) Not Available [facility] 4 02:57:03 Follow-u p visit Active 2018 Medical surveill ance followin g complete d treatmen t; Note: Date Diagnose d: 9 2:21 PM (Z09) Not Available [facility] 4 02:57:04 Impacted cerumen in left ear 53257316368 52135 Active 2019 Impacted cerumen, left ear; Note: Date Diagnose d: 0 10:33 AM (H61.22) Not Available [facility] 4 02:57:06 Gastroes ophageal reflux disease without esophagi tis 566233221 Active 2021 Gastro-e sophagea l reflux disease without esophagi tis; Note: Date Diagnose d: 2 10:25 AM (K21.9) Not Available [facility] 4 02:57:06 Pharynge al dysphagi a 40967017347 105 Active 2021 Dysphagi a, pharynge al phase; Note: Date Diagnose d: 2 10:30 AM (R13.13) Not Available [facility] 4 02:57:03 Dysphoni a 09094848 Active 2021 Hoarsene ss; Note: Date Diagnose d: 01/24/20 8:06 PM (R49.0) Dyspho mich; Note: Date Diagnose d: 2 10:25 AM (R49.0) ; Start Date : 11/18/19 22 Not Available [facility] 4 02:57:02 Tinnitus of left ear 96858638918 06 Active 2023 Tinnitus , left ear; Note: Date Diagnose d: 4 12:13 PM (H93.12) Not Available [facility] 4 02:57:06 Problem Notes None recorded. Procedures Surgical History Date Name Laterality Status Provider Name and Address Organization Details Recorded Time 5 Cerumen removal without microscope bilat completed JARETH ESPAÑA PA-C [address] [place] [address],[address], [place], [address], [facility] 11/25/2024 15:05:53 5 Cerumen removal without microscope bilat completed JARETH ESPAÑA PA-C [address] [facility],[address], [place], [address], [facility] 04/17/2024 11:18:35 4 Cerumen removal without microscope bilat completed JARETH ESPAÑA PA-C 100 [facility],[address], [place], [address], [facility] 10/16/2023 11:15:50 Imaging Results None recorded. Procedure Notes None recorded. Medical Equipment None Reported. Medications Name Sig Start Date Stop Date Status Note LastModified by Organization Details LastModified Time ofloxacin 0.3 % eye drops 07/13 completed Medicati on ID: [id number] D uration Value: 25 Brand Name: ofloxaci n Send Method: E-Prescr ibed Sub s Allowed: subs OK Speci al Instruct ion: instil one drop four TIMES A DAY. START ON 07/14, right EYE. WAIT FIVE MINUTES BETWEEN DIFFEREN T DROPS Me dication GenericN alfonzo: ofloxaci n Not Available Not Available Not Available amlodipin e 5 mg tablet TAKE 1 TABLET BY MOUTH DAILY active Not Available Not Available No t Available Ciloxan 0.3 % eye drops 08/14 completed Medicati on ID: [id number] P rescribe d By Name: KIMMY Humphries nd Name: Ciloxan Send Method: E-Prescr ibed Sub s Allowed: subs OK Speci al Instruct ion: Instill 4 drops twice a day into affected ear for 10 days Med icationG enericNa me: Ciloxan Not Available Not Available Not Available levothyro xine 75 mcg tablet TAKE 1 TABLET BY MOUTH DAILY active Not Available Not Available No t Available levothyro xine 100 mcg tablet 2018 active Medicati on ID: [id number] D uration Value: 30 Brand Name: levothyr oxine Se nd Method: E-Prescr ibed Sub s Allowed: subs OK Medic ationGen ericName : levothyr oxine Not Available Not Available Not Available prednisol one acetate 1 % eye drops,srinivasan pension 2018 active Medicati on ID: [id number] D uration Value: 25 Brand Name: predniso lone acetate Send Method: E-Prescr ibed Sub s Allowed: subs OK Speci al Instruct ion: instill one drop four TIMES A DAY, Start drop as directed AFTER surgic al procedur e ON 07/17/18, right EYE. Taper as instruct ed AT post operat [place] Name: predniso lone acetate Not Available Not Available Not Available omeprazol e 10 mg capsule,d elayed release TAKE 1 CAPSULE BY MOUTH EVERY MORNING active Not Available Not Available No t Available hydrochlo rothiazid e 12.5 mg capsule TAKE 1 CAPSULE BY MOUTH EVERY MORNING active Not Available Not Available No t Available losartan 100 mg tablet TAKE 1 TABLET BY MOUTH DAILY active Not Available Not Available No t Available atenolol 50 mg tablet TAKE 1 TABLET BY MOUTH TWICE DAILY active Not Available Not Available No t Available oxycodone 5 mg tablet 1 tablet by mouth 08/14 completed Medicati on ID: [id number] D uration Value: 3 Prescri bed By Name: Yaz Hathaway nd Name: oxycodon e Send Method: E-Prescr ibed Sub s Allowed: subs OK Medic ationGen ericName : oxycodon e Not Available Not Available Not Available TobraDex 0.3 %-0.1 % eye drops,srinivasan pension 4 drop 2018 active Medicati on ID: [id number] D uration Value: 14 Prescri bed By Name: Yaz Hathaway nd Name: TobraDex Send Method: E-Prescr ibed Sub s Allowed: subs OK Speci al Instruct ion: apply to affected ear(s) [place] a Name: TobraDex Not Available Not Available Not Available Ciprodex 0.3 %-0.1 % ear drops,srinivasan pension 4 drop 2018 active Medicati on ID: [id number] D uration Value: 14 Prescri bed By Name: Yaz Hathaway nd Name: Ciprodex Send Method: E-Prescr ibed Sub s Allowed: subs OK Medic ationGen ericName : Ciprodex Not Available Not Available Not Available aspirin 2018 active Medicati on ID: [id number] B rand Name: aspirin Send Method: E-Prescr ibed Sub s Allowed: subs OK Medic ationGen ericName : aspirin Not Available Not Available Not Available fenofibra te nanocryst allized 145 mg tablet TAKE 1 TABLET BY MOUTH DAILY active Not Available Not Available No t Available Prolensa 0.07 % eye drops 07/15 completed Medicati on ID: [id number] D uration Value: 60 Reason: () Brand Name: Prolensa Send Method: E-Prescr ibed Sub s Allowed: subs OK Speci al Instruct ion: intsill one drop Once daily in the morning START ON 07/14, right eye. W AIT 5 MINUTES BETWEEN DIFFEREN T DROPS Me dication GenericN alfonzo: Prolensa Not Available Not Available Not Available Vitals Date Recorded Body height Provider Name an d Address Organization Details Last Updated DateTime 04/17/2024 [address] [facility] 04/17/2024 11:24:46 Date Recorded Body height Body mass index (BMI) Body weight Provider Name and Address Organization Details Last Updated DateTime 10/16/2023 160.02 cm 19.5 kg/m2 99975.[address] [facility] 10/16/2023 11:10:57 Date Recorded Body height Body mass index (BMI) Body weight Provider Name and Address Organization Details Last Updated DateTime 11/25/2024 160.02 cm 19.5 kg/m2 11928.[address] [facility] 11/25/2024 14:53:48 Social History None recorded. Functional Status None recorded. Mental Status None recorded. Family History Nothing Reported. Medical History No medical history recorded. Gynecological HistoryNo gynecological history recorded. Obstetrics History GPAL:G 0 P 0 0 0 0 Past Encounters Encounter ID Performer Location Encounter Start Date Encounter Closed Date Diagnosis/Indication Diagnosis SNOMED-CT Code Diagnosis ICD10 Code Diagnosis IMO Codes Diagnosis Note [id number] JARETH ESPAÑA PA-C [facility] 100 [place] [address] 10/16/2023 11:06:22 10/16/2023 11:39:55 Impacted cerumen of bilateral ears 4774855996 330059 H61.23 [id number] SAMIRA GREY, AUD HERNANDE[place] 100 [facility],[place] [address] [place] [address] 10/30/2023 15:52:47 10/31/2023 13:30:26 Sensorineural hearing loss in right ear 9977988292 9100 H90.A21 [id number] JARETH ESPAÑA PA-C [facility] 100 [place] [address] 04/17/2024 11:17:24 04/17/2024 11:40:58 Impacted cerumen of bilateral ears 4614754681 509309 H61.23 [id number] SAMIRA GREY, NEREIDA HERNANDEZ [place] 100 [facility],[place] [address] [place] [address] 04/17/2024 11:17:24 04/17/2024 11:40:58 Sensorineural hearing loss in right ear 1655428069 9100 H90.A21 [id number] JARETH ESPAÑA PA-C [facility] 100 [place] [address] 11/25/2024 14:52:05 11/25/2024 15:11:46 Impacted cerumen of bilateral ears 5705371109 715848 H61.23 Health Concerns Section Related Observation LastModified by Organization Detai ls LastModified Time None Recorded Concern Status LastModified by Organization Details LastModified Time None Recorded Advance Directives Directive None Recorded Payers Insurance Date Sequence Insurance Name Policy Number Policy Liz Covered Member ID Liz Member ID Guarantor Name 11/22/2024 2 [place] [id number] Ruth Ann A Fecteau [id number] Ruth Ann A Fecteau 11/25/2024 1 [place] [employer] Ruth Ann A Fecteau [id number] Ruth Ann Petit Notes Date Note Type Note Provider Name and Address Organization Details Recorded Time 10/16/2023 text/html ROS as noted in the [facility] 88 year old female s/p left tympanoplasty and atticotomy with ossiculoplasty for eversion of retraction pocket and reconstruction of the ossicular chain performed 07/06/18 presents for an ear cleaning. Last seen in April and was cleared for [employer]CR[employer]. Currently using right sided hearing aid. No concerns today. MIGUELINA STALLWORTH MD 100 [facility],[address], [address], [facility] 10/16/2023 15:22:02 10/30/2023 text/html Just had her ears cleaned and we updated her HT back in Apr. Cleaned aid and it appears to be in good working order. No adjs were made at this time. Again discussed the limitations of her HL and briefly discussed the benefit of newer technology.She did talk about battery drain issues. I told her that she could potentially put the aid on the rack cleaner mid day so she can get through the day. The other option will be to pay $300 for an out of warranty repair. She will just give it an extra charge during the day and let me know if at some point she wants/needs to send aid in for a repair or potentially just upgrade. NEREIDA POON 100 [facility],[address], [address], [facility] 10/31/2023 09:26:45 04/17/2024 text/html ROS as noted in the HPI 88 year old female s/p left tympanoplasty and atticotomy with ossiculoplasty for eversion of retraction pocket and reconstruction of the ossicular chain performed 07/06/18 presents for an ear cleaning. Currently using right sided hearing aid. No concerns today. AWILDA FRIED MD 100 [facility],[address], [address], [facility] 04/17/2024 17:58:26 04/17/2024 text/html Pt returned our loaner and I gave her the replacement aid provided by [employer]. I originally thought it was a newer version but it is in fact the same model. Se just got her ears cleaned by [facility].Paid the $300 for the repair. She will call me as needed. NEREIDA POON 100 [facility],[place] [address], [place], [address], [facility] - [facility] 04/18/2024 08:52:19 11/25/2024 text/html ROS as noted in the HPI 89 year old female s/p left tympanoplasty and atticotomy with ossiculoplasty for eversion of retraction pocket and reconstruction of the ossicular chain performed 07/06/18 presents for an ear cleaning. Currently using right sided hearing aid. No concerns today. CHELY VALLE MD 100 [facility],[place] [place] [address], [place], [address], [facility] 11/25/2024 16:22:35 OBGyn Episode No OBEpisode recorded.
--- OUTSIDE RECORDS SUMMARY | 2025-01-09 13:17 | XMS_ITS | Continuity of Care Document ---
Author Organization [place] - [facility], [facility] Address [address] [place] [address] Assessment Encounter Date Assessment Date Assessment LastModified by Organization Details LastModified Time 11/25/2024 11/25/2024 89 year old female s/p left tympanoplasty and atticotomy with ossiculoplasty for eversion of retraction pocket and reconstruction of the ossicular chain performed 07/06/18 presents for an ear cleaning. Cerumen impaction removed bilaterally. Bilateral TMs are intact. Follow up in 6 months for cerumen removal. [email or web address] Not available 11/25/2024 15:06:08 Plan of Treatment [...] instructions recorded. Reason for Referral None Reported. Problems Name Problem SNOMED Code Status Onset Date Resolution Date Notes Provider Name and Address Organization Details Recorded Time Otorrhea of left ear [id number] 76241 Completed 201810/06/2023 Otorrhea , left ear; Note: Date Diagnose d: 05/09/2018 4:34 PM (H92.12) Not Available [facility] Adhesive middle ear disease 2775128 Completed 201810/06/2023 Adhesive left middle ear disease; Note: Date Diagnose d: 05/09/2018 4:34 PM (H74.12) Not Available [facility] 4 02:57:05 Impacted cerumen of bilatera l ears 55260771447 60794 Active 2018 Impacted cerumen, bilatera l; Note: Date Diagnose d: 05/09/2018 4:21 PM (H61.23) JARETH ESPAÑA PA-C [address] [place] [address],[facility] 100, [place], [address] , [facility] - [facility] 5 15:05:59 Sensorin eural hearing loss in right ear 12739959187 100 Active 2018 Sensorin eural hearing loss, unilater al, right ear, with restrict ed hearing on the contrala teral side; Note: Date Diagnose d: 06/07/2018 4:17 PM (H90.A21 ) Not Available [facility] 4 02:57:04 Mixed conducti ve and sensorin eural hearing loss of left ear 43414278420 107 Active 2018 Mixed conducti ve and sensorin eural hearing loss, unilater al, left ear with restrict ed hearing on the contrala teral side; Note: Date Diagnose d: 06/07/2018 4:17 PM (H90.A32 ) Not Available [facility] 4 02:57:02 Partial loss of ear ossicles 35430151 Active 2018 Partial loss of ear ossicles , right ear; Note: Date Diagnose d: 06/07/2018 4:15 PM (H74.321 ) ; Start Date : 06/08/19 19 Parti al loss of ear ossicles , left ear; Note: Date Diagnose d: 07/06/2018 11:27 AM (H74.322 ) Not Available [facility] 4 02:57:03 Follow-u p visit Active 2018 Medical surveill ance followin g complete d treatmen t; Note: Date Diagnose d: 9 2:21 PM (Z09) Not Available [facility] 4 02:57:04 Impacted cerumen in left ear 64251316203 46490 Active 2019 Impacted cerumen, left ear; Note: Date Diagnose d: 0 10:33 AM (H61.22) Not Available [facility] 4 02:57:06 Gastroes ophageal reflux disease without esophagi tis 918801226 Active 2021 Gastro-e sophagea l reflux disease without esophagi tis; Note: Date Diagnose d: 2 10:25 AM (K21.9) Not Available [facility] 4 02:57:06 Pharynge al dysphagi a 43826469652 105 Active 2021 Dysphagi a, pharynge al phase; Note: Date Diagnose d: 2 10:30 AM (R13.13) Not Available [facility] 4 02:57:03 Dysphoni a 79943129 Active 2021 Hoarsene ss; Note: Date Diagnose d: 01/24/20 8:06 PM (R49.0) Dyspho mich; Note: Date Diagnose d: 2 10:25 AM (R49.0) ; Start Date : 11/18/19 Not Available [facility] 4 02:57:02 Tinnitus of left ear 30313401119 06 Active 2023 Tinnitus , left ear; Note: Date Diagnose d: 4 12:13 PM (H93.12) Not Available [facility] 4 02:57:06 Problem Notes None recorded. Procedures Surgical History Date Name Laterality Status Provider Name and Address Organization Details Recorded Time 5 Cerumen removal without microscope bilat completed JARETH ESPAÑA PA-C [address] [place] [address], [phone], [place] - [facility] 11/25/2024 15:05:53 5 Cerumen removal without microscope bilat completed JARETH ESPAÑA PA-C [address] [place] [address], [address], [place] - [facility] 04/17/2024 11:18:35 4 Cerumen removal without microscope bilat completed JARETH ESPAÑA PA-C [address] [place] [address], [id number], [facility] - [facility] 10/16/2023 11:15:50 Imaging Results None recorded. Procedure Notes None recorded. Medical Equipment None Reported. Medications Name Sig Start Date Stop Date Status Note LastModified by Organization Details LastModified Time ofloxacin 0.3 % eye drops 07/13 completed Medicati on ID: [id number] D uration Value: 25 Brand Name: ofloxaci [...] eye drops 08/14 completed Medicati on ID: [id number] P destini d By Name: KIMMY Humphries nd Name: [...] mcg tablet 2018 active Medicati on ID: [id number] D uration Value: 30 Brand Name: levothyr oxine Se nd Method: E-Prescr ibed Sub s Allowed: subs OK Medic ationGen ericName : levothyr oxine Not Available Not Available Not Available prednisol one acetate 1 % eye drops,srinivasan pension 2018 active Medicati on ID: [id number] D uration Value: 25 Brand Name: predniso lone acetate Send Method: E-Prescr ibed Sub s Allowed: subs OK Speci al Instruct ion: instill one drop four TIMES A DAY, Start drop as directed AFTER surgic al procedur e ON 07/17/18, right EYE. Taper as instruct ed AT post operat M shin Tineo Name: predniso lone acetate Not Available [...] by mouth 08/14 completed Medicati on ID: [id number] D uration Value: 3 Prescri bed By Name: Yaz Hathaway nd Name: oxycodon e Send Method: E-Prescr ibed Sub s Allowed: subs OK Medic ationGen ericName : oxycodon e Not Available Not Available Not Available TobraDex 0.3 %-0.1 % eye drops,srinivasan pension 4 drop 2018 active Medicati on ID: [id number] D uration Value: 14 Prescri bed By Name: Yaz Hathaway nd Name: TobraDex Send Method: E-Prescr ibed Sub s Allowed: subs OK Speci al Instruct ion: apply to affected ear(s) Santo Tamayomiguel a Name: TobraDex Not Available Not Available Not Available Ciprodex 0.3 %-0.1 % ear drops,srinivasan pension 4 drop 2018 active Medicati on ID: [id number] D uration Value: 14 Prescri bed By Name: Yaz Hathaway nd Name: Ciprodex Send Method: E-Prescr ibed Sub s Allowed: subs OK Medic ationGen ericName : Ciprodex Not Available Not Available Not Available aspirin 2018 active Medicati on ID: [id number] B rand Name: aspirin Send Method: E-Prescr ibed Sub s Allowed: subs OK Medic ationGen ericName : aspirin Not Available Not Available Not Available fenofibra te nanocryst allized 145 mg tablet TAKE 1 TABLET BY MOUTH DAILY active Not Available Not Available No t Available Prolensa 0.07 % eye drops 05/06/ 2019 05/12 /2020 completed Medicati on ID: [id number] D uration Value: 60 Reason: () Brand Name: Julietaa Send Method: E-Prescr ibed Sub s Allowed: subs OK Speci al Instruct ion: intsill one drop Once daily in the morning START ON 07/14, right eye. W AIT 5 MINUTES BETWEEN DIFFEREN T DROPS Me dication GenericN alfonzo: Prolensa Not Available Not Available Not Available Vitals Date Recorded Body height Body mass index (BMI) Body weight Provider Name and Address Organization Details Last Updated DateTime 11/25/2024 160.02 cm 19.5 kg/m2 87354.16 g Talisha More [place] - [facility] 11/25/2024 14:53:48 Social History None recorded. Functional Status None recorded. Mental Status None recorded. Family History Nothing Reported. Medical History No medical history recorded. Gynecological HistoryNo gynecological history recorded. Obstetrics History GPAL:G 0 P 0 0 0 0 Past Encounters Encounter ID Performer Location Encounter Start Date Encounter Closed Date Diagnosis/Indication Diagnosis SNOMED-CT Code Diagnosis ICD10 Code Diagnosis IMO Codes Diagnosis Note [id number] JARETH ESPAÑA PA-C [facility] [address] [address] 11/25/2024 14:52:05 11/25/2024 15:11:46 Impacted cerumen of bilateral ears [id number] 150584 H61.23 Health Concerns Section Related Observation LastModified by Organization Detai ls LastModified Time None Recorded Concern Status LastModified by Organization Details LastModified Time None Recorded Payers Encounter Date Sequence Insurance Name Policy Number Policy Liz Covered Member ID Liz Member ID Guarantor Name 11/25/2024 2 [place] [id number] Ruth Ann A Fecteau [id number] Ruth Ann A Fecteau 11/25/2024 1 [place] [employer] Ruth Ann A Fecteau [id number] Ruth Ann A Fecteau Notes Date Note Type Note Provider Name and Address Organization Details Recorded Time 11/25/2024 text/html ROS as noted in the HPI 89 year old female s/p left tympanoplasty and atticotomy with ossiculoplasty for eversion of retraction pocket and reconstruction of the ossicular chain performed 07/06/18 presents for an ear cleaning. Currently using right sided hearing aid. No concerns today. CHELY VALLE MD [address] [place] [address], [place], [address], [facility] - [facility] 11/25/2024 16:22:35 OBGyn Episode No OBEpisode recorded.
== END 2025-01-09 10:57 | disposition home or self-care (01) ==
LOC: HO.MAMMO 10:56
PROVIDERS: PCP Physician Assistant; Visit Provider Physician Assistant
DX: Z12.31 Encounter for screening mammogram for malignant neoplasm of breast (principal)
CPT/HCPCS: 77063; 77067

== ENCOUNTER → 2025-01-09 11:15 | Outpatient (BNV) | payer MEDICARE, SELFPAY | PROVIDERS: PCP Physician Assistant; Visit Provider Internal Medicine | DX: Z12.31 Encounter for screening mammogram for malignant neoplasm of breast (principal) | CPT/HCPCS: 77063; 77067 ==

== ENCOUNTER 2025-01-16 13:22 | Outpatient (REF) | payer MEDICARE, SELFPAY ==
--- NOTE | ~2025-01-16 | US_ITS ---
EXAMINATION: MM DIAGNOSTIC DIGITAL BREAST TOMOSYNTHESIS, BILATERAL Bilateral Limited ultrasound. CLINICAL INFORMATION: Call back from screening for bilateral focal asymmetries. COMPARISON: Mammography: Comparison is made with relevant prior exams. TECHNIQUE: Digital breast mammography with tomosynthesis is performed in both the craniocaudal and mediolateral oblique views along with computer-aided detection (CAD). FINDINGS: The breasts are heterogeneously dense, which may obscure small masses. Left: Focal asymmetry in the upper outer left breast far posterior depth is not significantly changed from priors dating back to 2017. No suspicious calcifications or other abnormal findings. Targeted color Doppler ultrasound scanning in the upper outer left breast demonstrates normal fibronodular breast tissue. There is no sonographic abnormal finding. Right: Asymmetry medial breast anterior to middle depth on CC view and asymmetry retroareolar region posterior depth on MLO view are not significantly changed when comparing to priors dating back to 2016. No suspicious calcifications or other abnormal findings. Targeted color Doppler ultrasound scanning at 12:00 scanning in the retroareolar region and scanning from 2-4 o'clock demonstrates normal fibronodular breast tissue. There is no sonographic abnormal finding. Results are provided to the patient at time of visit by the technologist. US/US Breast BI Limited Mamm Only IMPRESSION: Previously seen bilateral asymmetries are stable from multiple prior images and no sonographic abnormal findings are seen in these areas. ASSESSMENT: BI-RADS Category 2: Benign RECOMMENDATION: 1 year F/U This patient's information was entered into a reminder system with a target due date for their next mammogram. Electronically signed by: Kelsey Barreto DO 01/16/2025 03:04 PM [facility]
--- OUTSIDE RECORDS SUMMARY | 2025-01-16 16:40 | XMS_ITS | Data Portability ---
Author Organization [place] - [facility] Address [address] [address] Assessment Encounter Date Assessment Date Assessment LastModified by Organization Details LastModified Time 10/16/2023 10/16/2023 88 year old female s/p left tympanoplasty and atticotomy with ossiculoplasty for eversion of retraction pocket and reconstruction of the ossicular chain performed 07/06/18 presents for an ear cleaning. Cerumen impaction removed bilaterally. Bilateral TMs are intact. Follow up in 6 months for cerumen removal. [email or web address] Not available 10/16/2023 11:49:43 04/17/2024 04/17/2024 88 year old female s/p left tympanoplasty and atticotomy with ossiculoplasty for eversion of retraction pocket and reconstruction of the ossicular chain performed 07/06/18 presents for an ear cleaning. Cerumen impaction removed bilaterally. Bilateral TMs are intact. Follow up in 6 months for cerumen removal. [email or web address] Not available 04/17/2024 11:18:39 11/25/2024 11/25/2024 89 year old female s/p left tympanoplasty and atticotomy with ossiculoplasty for eversion of retraction pocket and reconstruction of the ossicular chain performed 07/06/18 presents for an ear cleaning. Cerumen impaction removed bilaterally. Bilateral TMs are intact. Follow up in 6 months for cerumen removal. [email or web address] Not available 11/25/2024 15:06:08 Plan of Treatment [...] Details Recorded Time Otorrhea of left ear [id number] 29384 Completed 201810/06/2023 Otorrhea , left ear; Note: Date Diagnose d: 05/09/2018 4:34 PM (H92.12) Not Available [facility] 4 02:57:03 Adhesive middle ear disease 9065003 Completed 201810/06/2023 Adhesive left middle ear disease; Note: Date Diagnose d: 05/09/2018 4:34 PM (H74.12) Not Available [facility] 4 02:57:05 Impacted cerumen of bilatera l ears 32285461922 96914 Active 2018 Impacted cerumen, bilatera l; Note: Date Diagnose d: 05/09/2018 4:21 PM (H61.23) JARETH ESPAÑA PA-C [address] [place] [address], [facility] [place], [address] , [facility] - [facility] 5 15:05:59 Sensorin eural hearing loss in right ear 42062853521 100 Active 2018 Sensorin eural hearing loss, unilater al, right ear, with restrict ed hearing on the contrala teral side; Note: Date Diagnose d: 06/07/2018 4:17 PM (H90.A21 ) Not Available [facility] 4 02:57:04 Mixed conducti ve and sensorin eural hearing loss of left ear 65848716188 107 Active 2018 Mixed conducti ve and sensorin eural hearing loss, unilater al, left ear with restrict ed hearing on the contrala teral side; Note: Date Diagnose d: 06/07/2018 4:17 PM (H90.A32 ) Not Available [facility] 4 02:57:02 Partial loss of ear ossicles 07773404 Active 2018 Partial loss of ear ossicles , right ear; Note: Date Diagnose d: 06/07/2018 4:15 PM (H74.321 ) ; Start Date : 06/08/19 19 Parti al loss of ear ossicles , left ear; Note: Date Diagnose d: 07/06/2018 11:27 AM (H74.322 ) Not Available [facility] 4 02:57:03 Follow-u p visit Active 2018 Medical surveill ance followin g complete d treatmen t; Note: Date Diagnose d: 9 2:21 PM (Z09) Not Available [facility] 4 02:57:04 Impacted cerumen in left ear 23665256297 90032 Active 2019 Impacted cerumen, left ear; Note: Date Diagnose d: 0 10:33 AM (H61.22) Not Available [facility] 4 02:57:06 Gastroes ophageal reflux disease without esophagi tis 265057019 Active 2021 Gastro-e sophagea l reflux disease without esophagi tis; Note: Date Diagnose d: 2 10:25 AM (K21.9) Not Available [facility] 4 02:57:06 Pharynge al dysphagi a 78553743893 105 Active 2021 Dysphagi a, pharynge al phase; Note: Date Diagnose d: 2 10:30 AM (R13.13) Not Available [facility] 4 02:57:03 Dysphoni a 54225205 Active 2021 Hoarsene ss; Note: Date Diagnose d: 01/24/20 8:06 PM (R49.0) Dyspho mich; Note: Date Diagnose d: 2 10:25 AM (R49.0) ; Start Date : 11/18/19 22 Not Available [facility] 4 02:57:02 Tinnitus of left ear 99961456639 06 Active 2023 Tinnitus , left ear; Note: Date Diagnose d: 4 12:13 PM (H93.12) Not Available [facility] 4 02:57:06 Problem Notes None recorded. Procedures Surgical History Date Name Laterality Status Provider Name and Address Organization Details Recorded Time 5 Cerumen removal without microscope bilat completed JARETH ESPAÑA PA-C [address] [place] [address],[address], [place], [address], [facility] - [facility] [place] 11/25/2024 15:05:53 5 Cerumen removal without microscope bilat completed JARETH ESPAÑA PA-C 100 [facility],[address], [place], [address], [facility] - [facility] [place] 04/17/2024 11:18:35 4 Cerumen removal without microscope bilat completed JARETH ESPAÑA PA-C 100 [facility],[address] [address], [place], [address], [facility] - [facility] 10/16/2023 11:15:50 Imaging Results None recorded. Procedure Notes None recorded. Medical Equipment None Reported. Medications Name Sig Start Date Stop Date Status Note LastModified by Organization Details LastModified Time ofloxacin 0.3 % eye drops 07/13 completed Medicati on ID: [id number] D uration Value: 25 Brand Name: ofloxaci [...] eye drops 08/14 completed Medicati on ID: [id number] P rescribe d By Name: KIMMY Humphries [...] mcg tablet 2018 active Medicati on ID: [id number] D uration Value: 30 Brand Name: levothyr oxine Se nd Method: E-Prescr ibed Sub s Allowed: subs OK Medic ationGen ericName : levothyr oxine Not Available Not Available Not Available prednisol one acetate 1 % eye drops,srinivasan pension 2018 active Medicati on ID: [id number] D uration Value: 25 Brand Name: predniso [...] by mouth 08/14 completed Medicati on ID: [id number] D uration Value: 3 Prescri bed By Name: Yaz Hathaway nd Name: oxycodon e Send Method: E-Prescr ibed Sub s Allowed: subs OK Medic ationGen ericName : oxycodon e Not Available Not Available Not Available TobraDex 0.3 %-0.1 % eye drops,srinivasan pension 4 drop 2018 active Medicati on ID: [id number] D uration Value: 14 Prescri bed By Name: Yaz Hathaway nd Name: TobraDex Send Method: E-Prescr ibed Sub s Allowed: subs OK Speci al Instruct ion: apply to affected ear(s) Santo Tamayomiguel a Name: TobraDex Not Available Not Available Not Available Ciprodex 0.3 %-0.1 % ear drops,srinivasan pension 4 drop 2018 active Medicati on ID: [id number] D uration Value: 14 Prescri bed By Name: Yaz Hathaway nd Name: Ciprodex Send Method: E-Prescr ibed Sub s Allowed: subs OK Medic ationGen ericName : Ciprodex Not Available Not Available Not Available aspirin 2018 active Medicati on ID: [id number] B rand Name: aspirin Send Method: E-Prescr ibed Sub s Allowed: subs OK Medic ationGen ericName : aspirin Not Available Not Available Not Available fenofibra te nanocryst allized 145 mg tablet TAKE 1 TABLET BY MOUTH DAILY active Not Available Not Available No t Available Prolensa 0.07 % eye drops 07/15 completed Medicati on ID: [id number] D uration Value: 60 Reason: () Brand [...] Updated DateTime 04/17/2024 160.02 cm Bony Mauricio [facility] 04/17/2024 11:24:46 Date Recorded Body height Body mass index (BMI) Body weight Provider Name and Address Organization Details Last Updated DateTime 10/16/2023 160.02 cm 19.5 kg/m2 43345.16 g Talisha More [facility] 10/16/2023 11:10:57 Date Recorded Body height Body mass index (BMI) Body weight Provider Name and Address Organization Details Last Updated DateTime 11/25/2024 160.02 cm 19.5 kg/m2 20785.16 g Talisha More [facility] 11/25/2024 14:53:48 Social History None recorded. Functional Status None recorded. Mental Status None recorded. Family History Nothing Reported. Medical History No medical history recorded. Gynecological HistoryNo gynecological history recorded. Obstetrics History GPAL:G 0 P 0 0 0 0 Past Encounters Encounter ID Performer Location Encounter Start Date Encounter Closed Date Diagnosis/Indication Diagnosis SNOMED-CT Code Diagnosis ICD10 Code Diagnosis IMO Codes Diagnosis Note [id number] JARETH ESPAÑA PA-C [facility] 100 [place] [address] 10/16/2023 11:06:22 10/16/2023 11:39:55 Impacted cerumen of bilateral ears 4240000252 227104 H61.23 [id number] SAMIRA GREY, AUD HERNANDE[place] 100 [facility],[place] [address] [place] [address] 10/30/2023 15:52:47 10/31/2023 13:30:26 Sensorineural hearing loss in right ear 9587190022 9100 H90.A21 [id number] JARETH ESPAÑA PA-C [facility] 100 [place] [address] 04/17/2024 11:17:24 04/17/2024 11:40:58 Impacted cerumen of bilateral ears 6613919598 439674 H61.23 [id number] SAMIRA GREY, NEREIDA HERNANDEZ [place] 100 [facility],[place] [address] [place] [address] 04/17/2024 11:17:24 04/17/2024 11:40:58 Sensorineural hearing loss in right ear 2895173020 9100 H90.A21 [id number] JARETH ESPAÑA PA-C [facility] 100 [place] [address] 11/25/2024 14:52:05 11/25/2024 15:11:46 Impacted cerumen of bilateral ears 7667319695 476503 H61.23 Health Concerns Section Related Observation LastModified by Organization Detai ls LastModified Time None Recorded Concern Status LastModified by Organization Details LastModified Time None Recorded Advance Directives Directive None Recorded Payers Insurance Date Sequence Insurance Name Policy Number Policy Liz Covered Member ID Liz Member ID Guarantor Name 11/22/2024 2 [place] [id number] Ruth Ann A Fecteau [id number] Ruth Ann A Fecteau 11/25/2024 1 [place] B[place] [employer] Ruth Ann A Fecteau [id number] Ruth Ann Petit Notes Date Note Type Note Provider Name and Address Organization Details Recorded Time 10/16/2023 text/html ROS as noted in the [facility] 88 year old female s/p left tympanoplasty and atticotomy with ossiculoplasty for eversion of retraction pocket and reconstruction of the ossicular chain performed 07/06/18 presents for an ear cleaning. Last seen in April and was cleared for BiCR[employer]. Currently using right sided hearing aid. No concerns today. MIGUELINA STALLWORTH MD 100 [facility],[address], [address], [facility] 10/16/2023 15:22:02 10/30/2023 text/html Just had her [...] could potentially put the aid on the bottle washer machine mid day so she can get through the day. The other option will be to pay $300 for an out of warranty repair. She will just give it an extra charge during the day and let me know if at some point she wants/needs to send aid in for a repair or potentially just upgrade. NEREIDA POON 100 [facility],[address], [address], [facility] 10/31/2023 09:26:45 04/17/2024 text/html ROS as noted in the HPI 88 year old female s/p left tympanoplasty and atticotomy with ossiculoplasty for eversion of retraction pocket and reconstruction of the ossicular chain performed 07/06/18 presents for an ear cleaning. Currently using right sided hearing aid. No concerns today. WAILDA FRIED MD 100 [facility],[address], [address], [facility] 04/17/2024 17:58:26 04/17/2024 text/html Pt returned our loaner and I gave her the replacement aid provided by [employer]. I originally thought it was a newer version but it is in fact the same model. Se just got her ears cleaned by [facility].Paid the $300 for the repair. She will call me as needed. NEREIDA POON 100 [facility],[place] [address], [place], [address], [facility] - [facility] 04/18/2024 08:52:19 11/25/2024 text/html ROS as noted in the HPI 89 year old female s/p left tympanoplasty and atticotomy with ossiculoplasty for eversion of retraction pocket and reconstruction of the ossicular chain performed 07/06/18 presents for an ear cleaning. Currently using right sided hearing aid. No concerns today. CHELY VALLE MD 100 [facility],[place] [address], [place], [address], [facility] 11/25/2024 16:22:35 OBGyn Episode No OBEpisode recorded.
--- OUTSIDE RECORDS SUMMARY | 2025-01-16 16:40 | XMS_ITS | Continuity of Care Document ---
Author Organization [place] - [facility], [facility] Address [address] [place] [address] Assessment Encounter Date Assessment Date Assessment LastModified by Organization Details LastModified Time 11/25/2024 11/25/2024 89 year old female s/p left tympanoplasty and atticotomy with ossiculoplasty for eversion of retraction pocket and reconstruction of the ossicular chain performed 07/06/18 presents for an ear cleaning. Cerumen impaction removed bilaterally. Bilateral TMs are intact. Follow up in 6 months for cerumen removal. [email or web address] Not available 11/25/2024 15:06:08 Plan of Treatment [...] Details Recorded Time Otorrhea of left ear [id number] 17048 Completed 201810/06/2023 Otorrhea , left ear; Note: Date Diagnose d: 05/09/2018 4:34 PM (H92.12) Not Available [facility] Adhesive middle ear disease 0212600 Completed 201810/06/2023 Adhesive left middle ear disease; Note: Date Diagnose d: 05/09/2018 4:34 PM (H74.12) Not Available [facility] 4 02:57:05 Impacted cerumen of bilatera l ears [id number] 17504 Active 2018 Impacted cerumen, bilatera l; Note: Date Diagnose d: 05/09/2018 4:21 PM (H61.23) JARETH ESPAÑA PA-C [address] [place] [address],[facility] [address], [place], [address] , [facility] - [facility] 5 15:05:59 Sensorin eural hearing loss in right ear 74620219310 100 Active 2018 Sensorin eural hearing loss, unilater al, right ear, with restrict ed hearing on the contrala teral side; Note: Date Diagnose d: 06/07/2018 4:17 PM (H90.A21 ) Not Available [facility] 4 02:57:04 Mixed conducti ve and sensorin eural hearing loss of left ear 45835242019 107 Active 2018 Mixed conducti ve and sensorin eural hearing loss, unilater al, left ear with restrict ed hearing on the contrala teral side; Note: Date Diagnose d: 06/07/2018 4:17 PM (H90.A32 ) Not Available [facility] 4 02:57:02 Partial loss of ear ossicles 08946358 Active 2018 Partial loss of ear ossicles , right ear; Note: Date Diagnose d: 06/07/2018 4:15 PM (H74.321 ) ; Start Date : 06/08/19 19 Parti al loss of ear ossicles , left ear; Note: Date Diagnose d: 07/06/2018 11:27 AM (H74.322 ) Not Available [facility] 4 02:57:03 Follow-u p visit Active 2018 Medical surveill ance followin g complete d treatmen t; Note: Date Diagnose d: 9 2:21 PM (Z09) Not Available [facility] 4 02:57:04 Impacted cerumen in left ear 32965915022 89401 Active 2019 Impacted cerumen, left ear; Note: Date Diagnose d: 0 10:33 AM (H61.22) Not Available [facility] 4 02:57:06 Gastroes ophageal reflux disease without esophagi tis 102050842 Active 2021 Gastro-e sophagea l reflux disease without esophagi tis; Note: Date Diagnose d: 2 10:25 AM (K21.9) Not Available [facility] 4 02:57:06 Pharynge al dysphagi a 29980131994 105 Active 2021 Dysphagi a, pharynge al phase; Note: Date Diagnose d: 2 10:30 AM (R13.13) Not Available [facility] 4 02:57:03 Dysphoni a 33094608 Active 2021 Hoarsene ss; Note: Date Diagnose d: 01/24/20 8:06 PM (R49.0) Dyspho mich; Note: Date Diagnose d: 2 10:25 AM (R49.0) ; Start Date : 11/18/19 Not Available [facility] 4 02:57:02 Tinnitus of left ear 43808316363 06 Active 2023 Tinnitus , left ear; Note: Date Diagnose d: 4 12:13 PM (H93.12) Not Available [facility] 4 02:57:06 Problem Notes None recorded. Procedures Surgical History Date Name Laterality Status Provider Name and Address Organization Details Recorded Time 5 Cerumen removal without microscope bilat completed JARETH ESPAÑA PA-C [address] [place] [address], [address], [place] - [facility] 11/25/2024 15:05:53 5 Cerumen removal without microscope bilat completed JARETH ESPAÑA PA-C [address] [place] [address], [address], [place] - [facility] 04/17/2024 11:18:35 4 Cerumen removal without microscope bilat completed JARETH ESPAÑA PA-C [address] [place] [address], [address], [facility] - [facility] 10/16/2023 11:15:50 Imaging Results None recorded. Procedure Notes None recorded. Medical Equipment None Reported. Medications Name Sig Start Date Stop Date Status Note LastModified by Organization Details LastModified Time ofloxacin 0.3 % eye drops 07/13 completed Medicati on ID: [id number] D uration Value: 25 Brand Name: ofloxaci [...] eye drops 08/14 completed Medicati on ID: [id number] P destini d By Name: KIMMY Humphries [...] mcg tablet 2018 active Medicati on ID: [id number] D uration Value: 30 Brand Name: levothyr oxine Se nd Method: E-Prescr ibed Sub s Allowed: subs OK Medic ationGen ericName : levothyr oxine Not Available Not Available Not Available prednisol one acetate 1 % eye drops,srinivasan pension 2018 active Medicati on ID: [id number] D uration Value: 25 Brand Name: predniso [...] by mouth 08/14 completed Medicati on ID: [id number] D uration Value: 3 Prescri bed By Name: Yaz Hathaway nd Name: oxycodon e Send Method: E-Prescr ibed Sub s Allowed: subs OK Medic ationGen ericName : oxycodon e Not Available Not Available Not Available TobraDex 0.3 %-0.1 % eye drops,srinivasan pension 4 drop 2018 active Medicati on ID: [id number] D uration Value: 14 Prescri bed By Name: Yaz Hathaway nd Name: TobraDex Send Method: E-Prescr ibed Sub s Allowed: subs OK Speci al Instruct ion: apply to affected ear(s) Santo Tamayomiguel a Name: TobraDex Not Available Not Available Not Available Ciprodex 0.3 %-0.1 % ear drops,srinivasan pension 4 drop 2018 active Medicati on ID: [id number] D uration Value: 14 Prescri bed By Name: Yaz Hathaway nd Name: Ciprodex Send Method: E-Prescr ibed Sub s Allowed: subs OK Medic ationGen ericName : Ciprodex Not Available Not Available Not Available aspirin 2018 active Medicati on ID: [id number] B rand Name: aspirin Send Method: E-Prescr ibed Sub s Allowed: subs OK Medic ationGen ericName : aspirin Not Available Not Available Not Available fenofibra te nanocryst allized 145 mg tablet TAKE 1 TABLET BY MOUTH DAILY active Not Available Not Available No t Available Prolensa 0.07 % eye drops 05/06/ 2019 05/12 /2020 completed Medicati on ID: [id number] D uration Value: 60 Reason: () Brand [...] Updated DateTime 11/25/2024 160.02 cm 19.5 kg/m2 28244.16 g Talisha More [place] - [facility] 11/25/2024 14:53:48 Social History None recorded. Functional Status None recorded. Mental Status None recorded. Family History Nothing Reported. Medical History No medical history recorded. Gynecological HistoryNo gynecological history recorded. Obstetrics History GPAL:G 0 P 0 0 0 0 Past Encounters Encounter ID Performer Location Encounter Start Date Encounter Closed Date Diagnosis/Indication Diagnosis SNOMED-CT Code Diagnosis ICD10 Code Diagnosis IMO Codes Diagnosis Note [id number] JARETH ESPAÑA PA-C [facility] [address] [address] 11/25/2024 14:52:05 11/25/2024 15:11:46 Impacted cerumen of bilateral ears [id number] 271870 H61.23 Health Concerns Section Related Observation LastModified by Organization Detai ls LastModified Time None Recorded Concern Status LastModified by Organization Details LastModified Time None Recorded Payers Encounter Date Sequence Insurance Name Policy Number Policy Liz Covered Member ID Liz Member ID Guarantor Name 11/25/2024 2 [place] [id number] Ruth Ann A Fecteau [id number] Ruth Ann A Fecteau 11/25/2024 1 [place] [employer] Ruth Ann A Fecteau [id number] Ruth Ann A Fecteau Notes Date [...] aid. No concerns today. CHELY VALLE MD [address] [place] [address], [place], [address], [facility] - [facility] 11/25/2024 16:22:35 OBGyn Episode No OBEpisode recorded.
--- OUTSIDE RECORDS SUMMARY | 2025-01-16 16:40 | XMS_ITS | Patient Health Record ---
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) Active confirmed Problem Generalized abdominal pain (457535230) Generalized abdominal pain (R10.84) Active confirmed Problem Family History of Cancer of Colon (Situation) (166127166) Family history of colon cancer (Z80.0) Active confirmed Plan Of Treatment Future Test Test Name Order Date UPPER GI ENDOSCOPY 05/18/2011 COLONOSCOPY 05/18/2011 UPPER GI ENDOSCOPY 09/03/2014 UPPER GI ENDOSCOPY 04/27/2017 COLONOSCOPY 04/27/2017 Insurance Providers Payer Name Payer Address Payer Phone Subscriber Number Group Number Insured Name Patient Relationship to Insured Coverage Start Date Coverage End Date MEDICARE OF [place] [address] [place] [address] [id number] ROSSANA LARA Self - patient is the insured [employer] ATTN CLAIMS [address] [place] [address] [phone] [id number] ROSSANA LARA Self - patient is the insured Medical (General) History Medical History History ICD Code colon and egd 05-27-2011 gastroesophageal reflux disease with Bar rett's esophagus thyroid cancer coronary disease and history of angiopla sty hypertension Surgical History Surgery Date(Month/Year) thyroidectomy breast biopsy appendectomy foot surgery ear surgery angioplasty 2000 shoulder celeste- [facility]
--- OUTSIDE RECORDS SUMMARY | 2025-01-16 16:40 | XMS_ITS | Clinical Summary ---
Author Organization [facility] Address [address] [place] [address] Phone Care Team Providers Care Acid Supervisor Name Role Phone Fela Potter NP Primary Care Provider Allergies Active Allergy Reactions Criticality Noted Date Comments Niacin 08/19/2020 Iucwass-Lyi-Uld Reductase Inhibitors 08/19/2020 Tramadol 08/19/2020 Medications cholecalciferol [...] Description 12/04/2024 3:10 PM EDT Office Visit [facility] [address] [place] [address] Florence Dobson NP Coronary artery disease involving ak chin coronary artery of ak chin heart without angina pectoris (Primary Dx); Primary hypertension; Mixed hyperlipidemia; Cramps of lower extremity; Edema, unspecified type 11/25/2024 Telephone [facility] [address] [place] [address] Desean Ortiz MD from Last 3 [...] 01/20/2023 01/20/2022 Depression Screening 03/06/2024 COVID-19 Vaccine ( season) 2024 01/09/2024, 12/16/2022, 01/14/2022, Additional history [...] 12:07 PM EDT Performed at: 01 - [facility] [id number] General Inspector: Barb Garcia MD, Phone: [phone] us Florence Dobson IT SECURITY CONSULTANT LAB BLOOD ORDERABLES Final R esult [facility] [...] PM EDT Performed at: 01 - [facility] [address] [id number] General Inspector: Barb Garcia MD, Phone: [phone] us Florence Dobson IT SECURITY CONSULTANT LAB BLOOD ORDERABLES Final R esult [facility] 1 from Last 3 Months Insurance MEDICARE [facility] Care Teams Acid Supervisor Relationship Specialty Start Date End Date Fela Potter NP [address] [facility] [address] [place] [address] PCP - General Family Medicine 12/04/24
== END 2025-01-16 13:23 | disposition home or self-care (01) ==
LOC: HO.MAMMO 13:22
PROVIDERS: PCP Physician Assistant; Visit Provider Physician Assistant
DX: N64.89 Other specified disorders of breast (principal); R92.2 Inconclusive mammogram
CPT/HCPCS: 76642; 77062; 77066

== ENCOUNTER → 2025-01-16 14:00 | Outpatient (BNV) | payer MEDICARE, SELFPAY | PROVIDERS: PCP Physician Assistant; Visit Provider Internal Medicine | DX: R92.8 Other abnormal and inconclusive findings on diagnostic imaging of breast (principal) | CPT/HCPCS: 76642; 77066; G0279 ==

== ENCOUNTER 2025-02-13 13:18 | Outpatient (REF) | payer MEDICARE, SELFPAY ==
--- NOTE | ~2025-02-13 | US_ITS ---
EXAMINATION: US LOWER EXTREMITY VENOUS (REFLUX EXAM), BILATERAL CLINICAL INFORMATION: I 83.11. Varices. COMPARISON: None. TECHNIQUE: Color flow triplex imaging and compression Doppler was performed to evaluate both the deep and the superficial systems bilaterally. To evaluate the superficial system, the examination was performed in the upright position. Color-flow Doppler ultrasound and compression ultrasound were utilized. In addition, maneuvers were utilized to demonstrate reflux. FINDINGS: 1. DEEP VENOUS ULTRASOUND OF THE RIGHT LOWER EXTREMITY: Common Femoral Vein: Compressible, normal respiratory variation and augmented flow. Femoral Vein: Compressible, normal color flow and augmentation. Popliteal Vein: Compressible, normal augmentation. Deep Reflux: 988 ms in the mid femoral vein. There is no evidence of a Núñez's cyst. 2. SUPERFICIAL ULTRASOUND WITH DOPPLER OF RIGHT LOWER EXTREMITY: GREAT SAPHENOUS VEIN: Saphenofemoral Junction: 0.5 cm; Reflux: 0 ms Proximal Thigh: 0.4 cm; Reflux: 0 ms Mid Thigh: 0.2 cm; Reflux: 0 ms Distal Thigh: 0.2 cm; Reflux: 0 ms At Knee: 0.2 cm; Reflux: 0 ms Proximal Calf: 0.2 cm; Reflux: 2080 ms Mid Calf: 0.2 cm; Reflux: 2552 ms Distal Calf: 0.2 cm; Reflux: 2212 ms DUPLICATED MEDIAL GREAT SAPHENOUS VEIN: Diameter: None imaged Reflux: NA DUPLICATED LATERAL GREAT SAPHENOUS VEIN: Diameter: 0.2 cm. Reflux: NA SMALL SAPHENOUS VEIN: Saphenopopliteal Junction: 0.5 cm; Reflux: 2320 ms Proximal: 0.2 cm; Reflux: 0 ms Distal: 0.2 cm; Reflux: 0 ms VEIN OF GIACOMINI: Size: NA Reflux: NA PERFORATORS: Location: Great saphenous vein, proximal and mid calf. Size: 0.2 and 0.3 cm. Reflux: NA VARICOSITIES: Location: Small proximal and mid segments. Size: 0.4, 0.5 and 0.6 cm. Reflux: 2384 ms and 2828 ms in the proximal segment. 2704 ms in the mid segment. 3. DEEP VENOUS ULTRASOUND OF THE LEFT LOWER EXTREMITY: Common Femoral Vein: Compressible, normal respiratory variation and augmented flow. Femoral Vein: Compressible, normal color flow and augmentation. Popliteal Vein: Compressible, normal augmentation. Deep Reflux: There is no evidence of reflux in the deep system in either the common femoral vein, superficial femoral or the popliteal vein. There is no evidence of a Núñez's cyst. 4. SUPERFICIAL ULTRASOUND WITH DOPPLER OF LEFT LOWER EXTREMITY: GREAT SAPHENOUS VEIN: Saphenofemoral Junction: 0.6 cm; Reflux: 0 ms Proximal Thigh: 0.4 cm; Reflux: 0 ms Mid Thigh: 0.2 cm; Reflux: 0 ms Distal Thigh: 0.3 cm; Reflux: 2296 ms At Knee: 0.2 cm; Reflux: 2344 ms Proximal Calf: 0.1 cm; Reflux: 2532 ms Mid Calf: 0.3 cm; Reflux: 2368 ms Distal Calf: 0.2 cm; Reflux: 2020 ms DUPLICATED MEDIAL GREAT SAPHENOUS VEIN: Diameter: None imaged Reflux: NA DUPLICATED LATERAL GREAT SAPHENOUS VEIN: Diameter: 0.2 cm. Reflux: 2336 ms in the mid thigh . SMALL SAPHENOUS VEIN: Saphenopopliteal Junction: 0.3 cm; Reflux: 0 ms Proximal: 0.2 cm; Reflux: 0 ms Distal: 0.2 cm; Reflux: 0 ms VEIN OF GIACOMINI: Size: 0.2 cm. Reflux: NA PERFORATORS: Location: Great saphenous vein, mid calf and proximal calf. Size: 0.2 and 0.3 cm. Reflux: 2508 ms in the proximal calf. VARICOSITIES: Location: None Imaged Size: NA Reflux: NA US/US venous insuf bilat IMPRESSION: Right: Venous insufficiency, great saphenous vein from below the knee to the ankle. Venous insufficiency, small saphenous vein at the junction. Deep venous system reflux in the femoral vein. Varices with reflux in the small saphenous vein from the proximal to mid segment. Left: Venous insufficiency, great saphenous vein from above the knee to the ankle. Venous insufficiency in the accessory lateral great saphenous vein, mid thigh. Perforators with reflux in the great saphenous vein, proximal calf. Electronically signed by: Mio Bhat MD 02/13/2025 03:37 PM EST
== END 2025-02-13 13:19 ==
LOC: HO.US 13:18
PROVIDERS: PCP Physician Assistant; Visit Provider Surgery Vascular Surgery
DX: I83.11 Varicose veins of right lower extremity with inflammation (principal)
CPT/HCPCS: 93970

== ENCOUNTER → 2025-02-13 13:20 | Outpatient (BNV) | payer MEDICARE, SELFPAY | PROVIDERS: PCP Physician Assistant; Visit Provider Radiology Diagnostic Radiology | DX: I83.11 Varicose veins of right lower extremity with inflammation (principal) | CPT/HCPCS: 93970 ==